=== PATIENT | male | born 1995 | race African-American/Black ===

== ENCOUNTER 2017-08-05 09:15 | Emergency (ER) | payer MEDICAID ==
[~2017-08-05] VITALS: Ht 172.7 cm; Wt 61.2 kg
--- NOTE | 2017-08-05 09:46 | RADIOLOGY REPORT PS360 ---
CHEST(2 VIEWS-NOT PORTABLE) INDICATION: Productive Cough COMPARISON: None FINDINGS: The lung hassan are well expanded and appear clear of infiltrate. The cardiomediastinal silhouette and vascularity are normal. The costophrenic angles are clear. The bony thorax is normal. IMPRESSION: Normal chest.
--- NOTE | 2017-08-05 10:02 | Urgent Treatment Center Report ---
History of Present Issue Date/Time Seen by Provider 08/05/17 0952 Visit Reason Pt arrived:Walked Presenting Problem:PT C/O PRODUCTIVE COUGH, CHEST CONGESTION, FEVER, BODYACHES, FATIGUE, AND NASAL CONGESTION X3 DAYS Location if Accident: Onset of symptoms date/time:/ or onset unknown for:MEDICAL HX UNKNOWN Have you (or family members/close friends) recently traveled outside the [place]? N If Yes, where/when: Have you had exposure to infectious disease within the past month? TB? Other? Specify: State that he has been having productive cough, States that he has been having sinus congestion, chest congestion, fever, bodyaches and over all not feeling well for 3-4 days State that symptoms have not improved and continued to get worse. ALLERGIES Coded Allergies: Penicillins (08/30/16) Home Medications Active Scripts SULFAMETHOXAZOLE W/TRIMETHOPRI (Bactrim Ds Tab) 1 TAB PO BID #14 TAB Prov: 07/26/16 History Medical History General CAD? No Angina: No NE: No Hypertension? No Hyperlipidemia? No CHF? No DVT? No PE? No COPD? No Asthma? No Anemia? No GERD? No Gastric ulcers? No GI Bleed? No Hernia? No Thyroid Problems? No Hypothyroidism? No CVA? No Seizures? No Diabetes? No Renal Insuffiency? No UTI? No Stones? Yes BPH? No GB Disease: No Nephritic Syndrome? No Asplenia? No Hepatitis? No Sickle Cell Disease? No Arthritis? No Migraines? No Cataracts? No Glaucoma? No MRSA? No HIV? No TB? No Anxiety? No Depression? No Cancer? No More? No Immunization HX DT/Tetanus 5-10 Years Ago Pneumonia Refuses Surgical Hx Previous Surgery?Y 3 METAL PLATES IN HEAD WISDOM TEETH KIDNEY STONE REMOVAL Family History Family HX Diabetes Yes CAD Yes Hypertension Yes Hyperlipidemia Yes Cancer Yes TB No Social History Smoking Hx Smoker: Current Every Day Smoker Tobacco: Yes Type Cigarettes Packs/day < 1 Pack Alcohol Alcohol: No Review of Systems All Other Systems Reviewed and Negative Constitutional chills, fever, weakness ENT nose congestion, throat pain. denies: ear pain. Respiratory cough, denies shortness of breath, denies wheezing Cardiovascular denies chest pain, denies palpitations Gastrointestinal denies abdominal pain, denies nausea, denies vomiting Physical Exam Vital Signs Vital Signs Date Time Temp Pulse Resp B/P Pulse O2 O2 Flow FiO2 Ox Delivery Rate 08/05 930 100.8 120 18 123/88 97 General Appearance Patient appears ill sitting on exam table Ear, Nose, Throat sinus pain/drainage, nasal congestion, Throat red, irritated, tenderness noted maxillary sinsuse reports greenish yellow drainage Respiratory Status Yes: trachea midline, chest symmetrical, non tender chest. No: respiratory distress. Lung Sounds bilateral: normal breath sounds. Cardiovascular regular rate/rhythm Neurologic alert, normal exam, oriented x 3 Medical Decision Making LABS/Meds/Orders Pt receiving controlled substance in ED? No Results/Orders Laboratory Tests 08/05/17 0930: Influenza Type A Ag NOT DETECTED, Influenza Type B Ag NOT DETECTED Orders Procedure Date/time Status CULTURE, SPUTUM 08/05 936 Active TXC FLU A,B 08/05 930 Complete Departure Departure Time of Disposition 958 Disposition DC Home or Self Care(routine) Clinical Impression Primary Impression: Upper respiratory infection Qualifiers: URI type: unspecified URI Qualified Code: J06.9 - Acute upper respiratory infection, unspecified Condition STABLE Patient Instructions Cough, DI for Cough -- Adult, DI for Sinusitis Additional Instructions * Monitor Temp. Tylenol and/or Ibuprofen as needed. ER if fever is no less than 101 despite alternating Tylenol and Ibuprofen * Encourage fluids, water, Gatorade, powerade, pedialyte if /toddler/or child * Warm salt water gargles for throat irritation *Warm fluids *Sore throat lozenges *Sleep elevated *humidifier or vaporizer Follow up IMMEDIATELY for new or worsening of symptoms OR no noticeable improvement over the next 48-72 hours. 911 immediately for any life threatening symptoms such as chest pain or difficulty breathing Discharge Counseling Counseled pt/family regarding diagnosis, test results, medications/RX, home care, follow up needs Prescriptions Current Visit Scripts Azithromycin (Zithromycin (Z-BECKY) 250MG Tab) 250 MG PO DAILY #6 TAB TAKE TWO (2) TABLETS ON DAY 1, THEN ONE (1) TABLET DAY #2 THRU #5 Methylprednisolone (Medrol Dose Becky) 4 MG PO UD #1 BECKY TAKE DIRECTED ON PACKAGING Fluticasone Propionate (Flonase 50 Mcg Nasal [place]) 2 SPRAY NA DAILY #1 BOT Benzonatate (Tessalon Perle) 100 MG PO TID #15 SGL at 1001
[2017-08-05 10:03] VITALS: BP 123/88
--- OUTSIDE RECORDS SUMMARY | 2017-08-12 02:29 | External Medical Summary Rpt | CCD ---
Author Author , DANA Organization DANA Address Unknown Phone [email or web address] Care Team Providers Care Kiln Maintenance Name Role Phone A Soniya ELIZABETH MD PSC, A Unavailable Unavailable Soniya ELIZABETH MD PSC VENEGAS ANA, VENEGAS Unavailable Unavailable [facility] Unavailable Unavailable PSC, [facility] ARNOLD, ARNOLD Unavailable Unavailable ARNOLD, ARNOLD Unavailable Unavailable ARNOLD LULY, ARNOLD Unavailable Unavailable LULY ARNOLD LULY, ARNOLD Unavailable Unavailable LULY BESSON ABHIJIT, BESSON Unavailable Unavailable ABHIJIT VAZQUEZ ALL, VAZQUEZ ALL Unavailable Unavailable BRENDAN EDGAR, Unavailable Unavailable BRENDAN EDGAR [facility], Unavailable Unavailable [facility], Unavailable [facility]available [facility], [facility] Unavailable Unavailable [facility], [facility] Unavailable Unavailable MARINA ELIZABETH, MARINA Unavailable Unavailable [facility]ABETH [facility] Unavailable Unavailable INC, [facility] Unavailable Unavailable HOSPITAL P, [facility] P [facility], Unavailable Unavailable [facility] Unavailable Unavailable IMAGING ASS, [facility] KILPELA JEA, KILPELA Unavailable Unavailable PUMAA ILA LAMAR DWI, ILA Unavailable Unavailable JR DWI [facility] Un[facility]available [facility], [facility] Unavailable Unavailable SADEK MOH, SADEK MOH Unavailable Unavailable SCIFRES ANG, SCIFRES Unavailable Unavailable ANG SCIFRES ANG, SCIFRES Unavailable Unavailable ZAIN ALEJO, Unavailable [facility]available [facility], Unavailable Unavailable [facility] CLARA PÉREZ Unavailable Unavailable Purpose Continuity of Care Document - 01-14-2013 through 2016 Problems Code Diagnosis DOS Provider Status J029 ACUTE 11-05-2016 ARNOLD PHARYNGITIS UNSPECIFIED J069 ACUTE UPPER 01-06-2017 ARNOLD RESPIRATORY INFECTION UNSPECIFIED R51 HEADACHE 08-30-2016 [facility] R55 SYNCOPE AND 08-30-2016 [facility]SE [facility] I249PRO FALL SAME 08-30-2016 NATTY [facility] P SUB STRIK OBJ INIT F18543 UNS PLACE 08-30-2016 NATTY UNS NON [facility] INST RES HOSPITAL P PLACE OF OCCUR EXT N200 CALCULUS OF 07-26-2016 [facility] [place] N23 UNSPECIFIED 07-26-2016 [facility] COLIC [facility] Z720 TOBACCO USE 07-26-2016 NATTY [facility] [id number] PERSONAL 07-26-2016 [facility] URINARY INC CALCULI N201 CALCULUS OF 05-06-2016 [facility] PSC N202 CALCULUS OF 05-06-2016 [facility] WITH CALCULUS OF URETER Z880 ALLERGY 05-06-2016 [facility] STATUS TO HOSPITAL PENICILLIN N029 RECUR & 05-04-2016 NATTY PERSIST [facility] P UNS MORPHOLOG CHANGES R109 UNSPECIFIED 04-27-2016 [place] [facility] E860 DEHYDRATION 04-26-2016 [facility] N12 TUBULO-INTE 04-26-2016 [facility] RST [facility] NEPHRITIS PLLC NOT SPEC ACUTE/CHRON N132 HYDRONEPHRO 04-26-2016 [place] SIS W/RENAL MEDICAL & URETRL IMAGING ASS CALCULOUS OBST N139 OBSTRUCTIVE 04-26-2016 [place] AND REFLUX [facility]ICAL UROPATHY IMAGING ASS UNSPECIFIED N179 ACUTE 04-26-2016 [facility] FAILURE [facility] UNSPECIFIED R1110 VOMITING 04-26-2016 [place] UNSPECIFIED [facility] R112 NAUSEA WITH 04-26-2016 [facility] VOMITING [facility], UNSPECIFIED PLLC [id number] LACERATION 04-25-2016 [facility] W/O FB PHYSICIANS, OTHER PART PLLC HEAD INITIAL ENC R1030 LOWER 04-11-2016 [facility]OM[facility]AL [facility] PAIN PLLC UNSPECIFIED R1031 RIGHT LOWER 04-11-2016 [place] [facility] R197 DIARRHEA 04-11-2016 [facility] [id number] CONTUSION 03-08-2016 [facility] OF RIGHT [facility], HAND PLLC INITIAL ENCOUNTER [id number] UNSPECIFIED 03-08-2016 [facility] INJURY RT MEDICAL WRIST HAND IMAGING ASS FINGERS INITIAL F02099 PERSONAL 03-08-2016 [facility] NICOTINE INC DEPENDENCE H5203 HYPERMETROP 02-06-2016 SCIFRDANIELLE ANG IA BILATERAL J0190 ACUTE 01-19-2016 ARNOLD LULY SINUSITIS UNSPECIFIED J209 ACUTE 01-19-2016 ARNOLD LULY BRONCHITIS UNSPECIFIED S34838 PAIN IN 01-19-2016 [facility] Z1021BS UNSPECIFIED 01-19-2016 ARNOLD LULY INJURY UNS WRIST HAND FINGERS INIT 4660 ACUTE 07-18-2015 ARNOLD LULY BRONCHITIS 98515 UNSPECIFIED 03-19-2015 A Soniya ELIZABETH VIRAL PSC INFECTION IN CCE & UNS SITE 4619 ACUTE 02-13-2015 ARNOLD LULY SINUSITIS, UNSPECIFIED 8910 OPEN WOUND 02-11-2015 A Soniya ELIZABETH KNEE PSC LEG&ANK WITHOUT MENTION COMP 11246 NONSPEC 01-31-2015 A Soniya GRUBBS MD PSC TUBERCULIN SKIN TEST W/O ACTIVE TB V1549 OTH PERS HX 01-30-2015 [facility] TRAUMA PRS HAZS HLTH 462 ACUTE 01-29-2015 A Soniya ELIZABETH PHARYNGITIS PSC 7862 COUGH 01-29-2015 A Soniya ELIZABETH MD PSC 9190 ABRASION/FR 01-29-2015 NATTY ICION BURN [facility] OTH MX&UNS HOSPITAL P SITE W/O INF E8498 OTHER 01-29-2015 NATTY [facility] PL[facility] OF HOSPITAL P OCCURRENCE E8849 OTHER 01-29-2015 NATTY ACCIDENTAL [facility] FALL FROM HOSPITAL P ONE LEVEL TO ANOTHER V851 BODY MASS 01-29-2015 A Soniya ELIZABETH INDEX PSC BETWEEN 19-24 ADULT 4659 ACUTE URIS 01-06-2015 A Soniya RAMIRES PSC UNSPECIFIED SITE 0340 STREPTOCOCC 10-08-2014 [facility] 7841 THROAT PAIN 08-01-2014 A Soniya ELIZABETH MD PSC V202 ROUTINE 05-17-2014 FIELD AMB OR CHILD HEALTH CHECK Allergies, Adverse Reactions, Alerts Type Allergy to substance Adverse Reaction to Substance Substance Reaction Severity NO KNOWN ALLERGIES Unknown Unknown Medications Na ND Rx Da Fi Fi Am Da Di Ph RX Ph St me C No te ll ll ou ys ag ar # ys at rm s nt no ma ic us Or Da si cy ia de te s n re d BR 60 08 09 60 10 00 WA Ac OM 43 -2 -2 0. 00 L- ti PH 20 5- 9- 00 07 MA ve EN 27 20 20 0 50 RT IR 51 17 17 59 -P 6 52 PH SE AR UD MA OE CY PH ED #5 -D 91 M SY R WV 57 07 08 30 30 00 WA Ac RT 23 -1 -1 .0 00 L- ti AZ 70 2- 1- 00 07 MA ve AP 00 20 20 49 RT IN 83 17 17 84 E 0 97 PH 15 AR MA MG CY TA #5 BL 91 ET VE 00 01 02 18 18 00 EA Ac NT 17 -0 -[address] ti OL 30 6- 0- 00 00 SI ve IN 68 20 20 47 DE 22 17 17 15 HF 0 54 PH A AR 90 MA CY MC G OF IN CY BAUTISTA NT LE HI R AN A IN C LI 50 01 02 10 2 00 EA Ac DO 38 -0 -[address] ti CA 30 6- 0- 00 00 SI ve IN 77 20 20 0 47 DE E 50 17 17 15 2% 4 53 PH AR MA SC CY OU S OF SO CY LN NT HI AN A IN C AL 00 01 02 18 9 00 EA Ac OM 60 -0 -[address] ti ET 31 6- 0- 00 00 SI ve BAUTISTA 58 20 20 0 47 DE ZI 65 17 17 15 NE 8 51 PH -D AR M MA SY CY RU P OF CY NT HI AN A IN C CE 16 01 02 30 30 00 EA Ac TI 71 -0 -[address] ti RI 40 6- 0- 00 00 SI ve ZI 27 20 20 47 DE NE 10 17 17 15 3 50 PH HC AR L MA 10 CY MG OF CY TA NT BL HI ET AN A IN C DO 00 01 02 20 10 00 EA Ac XY 14 -0 -[address] ti CY 33 6- 0- 00 00 SI ve CL 14 20 20 42 DE IN 25 17 17 76 E 0 42 PH HY AR CL MA AT CY E 10 OF 0 CY MG NT HI CA AN P A IN C Vital Signs 01-14-2013 13:42 Name Value Interpretat Reference Comment ion Range Body 98.3 [degF] Temperature BP 84 mm[Hg] Diastolic BP Systolic 140 mm[Hg] Heart 77 /min Rate/Pulse O2% 99 % Respiratory 18 /min Rate 01-14-2013 13:31 Name Value Interpretat Reference Comment ion Range Body 98.3 [degF] Temperature BP 84 mm[Hg] Diastolic BP Systolic 140 mm[Hg] Heart 77 /min Rate/Pulse O2% 99 % Respiratory 18 /min Rate Results Labs Lab Lab Date Result Refere Interp Status Commen Order Detail nces retati t Range on Influenza virus A+B Ag [Presence] in Unspecified specimen (08-05-2017 09:30) Influen NOT NOT complet za 017 DETECTE DETECTD ed virus A 09:30 D Ag [Presen ce] in Unspeci fied specime n INFLUEN NOT NOT complet ZA B 017 DETECTE DETECTD ed ANTIGEN 09:30 D Procedures Procedure DOS Code Location Performer Comment ECG 95755 NATTY THORPE JR ROUTINE 6 [facility] W/LEAST P 12 LDS [place] [address] [place] BRENDAN HEAD/BRAI 6 MEDICAL EDGAR N W/O IMAGING CONTRAST ASS MATERIAL THERAPEUT 60443 NATTY LUZ IC 6 [facility] INJECTION [place] [address] [place] VAZQUEZ ALL ABDOMEN & 6 MEDICAL PELVIS IMAGING [place] [address] NATTY LUZ INFUSION 6 [facility] THERAPY/P INC INC ROPHYLAXI S /DX 1ST TO 1 HR URNLS DIP 97044 NATTY LUZ 6 [facility] STICK/TAB INC INC LET REAGENT AUTO MICROSCOP Y BLOOD 87377 NATTY LUZ COUNT 6 [facility] COMPLETE INC INC AUTO&AUTO DIFRNTL WBC COMPREHEN 93777 NATTY LUZ SIVE 6 [facility] METABOLIC INC INC PANEL CYSTO 79997 [facility] W/[address] URETERAL STENT ANES 27721 ANESTHESI MOISES HEA TRURL 6 A FRAGMNTJ ASSOCIATE MANJ&/RMV S PSC L URETERAL CALCULUS INJECTION J[address] ONDANSETR ON HCL PER 1 MG INJECTION J[address] ACETAMINO PHEN 10 MG CYSTO 88088 [facility] W/URETERO [address] [place] [address] SCOPY W/RMVL/MA [place] STONES INJECTION J[address] DEXAMETHO SONE SODIUM PHOSPHATE 1 MG INJECTION J1956 [address] LEVOFLOXA ADY 250 MG INJECTION J2001 [address] LIDOCAINE HCL INTRAVENO US INFUS 10 MG STENT C2617 [facility] NON-COR [address] [place] [address] TEMPORARY WITHOUT DELIVERY SYSTEM CALCULUS 84846 [facility] INFRARED [address] [place] [address] SPECTROSC OPY INJECTION J[address]85 [address] KETOROLAC TROMETHAM INE PER 15 MG INJECTION J2704 [facility] PROPOFOL [address] [place] [address] 10 MG INJECTION J3010 [facility] FENTANYL [address] [place] [address] CITRATE 0.1 MG UNCLASSIF J3490 NATTY LUZ IED DRUGS 6 [facility] INC INC OBSERVATI 72810 [facility]ARE 6 [facility] DISCHAR[facility] INTERNAL MED MANAGEMEN T RADEX 47907 [facility] BRENDAN ABDOMEN 1 6 MEDICAL EDGAR IMAGING [facility] G0378 NATTY LUZ OBSERVATI 6 [facility] ON INC INC SERVICE PER HOUR BLOOD 80843 NATTY LUZ COUNT 6 [facility] COMPLETE INC INC AUTO&AUTO DIFRNTL WBC COLLECTIO 98323 NATTY LUZ N VENOUS 6 [facility] BLOOD INC INC VENIPUNCT URE COMPREHEN 20139 NATTY LUZ SIVE 6 [facility] METABOLIC INC INC PANEL COMPREHEN 84219 NATTY LUZ SIVE 6 [facility] [place] [address] NATTY LUZ AMYLASE 6 [facility] H[facility] INC INC BLOOD 19607 NATTY LUZ COUNT 6 [facility] COMPLETE INC INC AUTO&AUTO DIFRNTL WBC INITIAL 25862 [facility] OBSERVATI 6 [facility] INTERNAL CARE/DAY MED 30 MINUTES TOBACCO 27184 NATTY LUZ USE 6 [facility] CESSATION INC INC INTERMEDI ATE 3-10 MINUTES HOSPITAL G0378 NATTY LUZ OBSERVATI 6 [facility] ON INC INC SERVICE PER HOUR URNLS DIP 06874 NATTY LUZ 6 [facility] STICK/TAB INC INC LET REAGENT AUTO MICROSCOP Y THERAPEUT 54504 NATTY LUZ IC 6 [facility] INJECTION INC [place] [address] [facility] ABDOMEN & 6 MEDICAL EDAGR PELVIS IMAGING W/CONTRAS ASS T MATERIAL RADEX 47300 [facility] VAZQUEZ ALL ABDOMEN 1 6 MEDICAL IMAGING [place] [address] NATTY LUZ LIPASE 6 [facility] INC INC CULTURE 71279 NATTY LUZ BACTERIAL 6 [facility] INC [place] [address] NATTY LUZ INFUSION 6 [facility] THER INC INC PROPH ADDL SEQUENT[place] L TO 1 [place] [address] NATTY NATTY INFUSION 6 [facility] THERAPY INC INC PROPHYLAX IS/DX EA HOUR UNCLASSIF J3490 NATTY LUZ IED DRUGS 6 [facility] INC INC SIMPLE 87531 KM FAUSTIN REPAIR 6 PHYSICIAN U MELO F/E/E/N/L S, PLLC /M 2.[place]CM-[place] [address] NATTY NATTY ABDOMEN & 6 [facility] PELVIS INC INC W/CONTRAS T MATERIAL URNLS DIP 81043 NATTY LUZ 6 [facility] STICK/TAB INC INC LET REAGENT AUTO MICROSCOP Y COMPREHEN 04316 NATTY LUZ SIVE 6 [facility] METABOLIC INC INC PANEL LOCM Q9967 NATTY LUZ 300-399 6 [facility] MG/ML INC INC IODINE CONCENTRA TION PER ML BLOOD 25176 NATTY LUZ COUNT 6 [facility] COMPLETE INC INC AUTO&AUTO DIFRNTL WBC UNCLASSIF J3490 NATTY LUZ IED DRUGS 6 [facility] INC INC UNCLASSIF J3490 NATTY LUZ IED DRUGS 6 [facility] INC INC THERAPEUT 11806 NATTY LUZ IC 6 [facility] PROPHYLAC INC INC TIC/DX INJECTION SUBQ/IM RADEX 75233 [facility] ALL HAND 2 6 MEDICAL VIEWS IMAGING ASS RADEX 59899 NATTY LUZ HAND 6 [facility] MINIMUM 3 INC INC VIEWS OPHTH 89474 SCIFRES SCIFRES MEDICAL 6 ANG ANG XM&EVAL COMPRHNSV ESTAB PT 1/> FRAMES V2020 SCIFRES SCIFRES PURCHASES 6 ANG ANG SCRATCH V2760 SCIFRES SCIFRES RESISTANT 6 ANG ANG COATING PER LENS LENS V2784 SCIFRES SCIFRES POLYCARBO 6 ANG ANG PILAR OR EQUAL ANY INDEX PER LENS SPHERE V2100 SCIFRES SCIFRES SINGLE 6 ANG ANG VISION PLANO +/- 4.00 PER LENS FITTING 56728 SCIFRES SCIFRES SPECTACLE 6 ANG ANG S XCPT APHAKIA MONOFOCAL RADEX 54838 [place] BR[facility]AN HAND 6 MEDICAL EDGAR MINIMUM 3 IMAGING VIEWS ASS SMPL 38295 NATTY GRAY REPAIR 5 [facility] K/AX/CONNIE P T/TRUNK 2.6-7.5CM BLOOD 53202 A C CLARA A COUNT 5 CLARA RICHARDSON COMPLETE PSC AUTO&AUTO DIFRNTL WBC IAADIADOO 87146 A Soniya Rodrigez 5 CLARA RICHARDSON STREPTOCO PSC CCUS GROUP A IAADIADOO 52643 A Soniya DE PAZ 5 CLARA RICHARDSON STREPTOCO PSC CCUS GROUP A INJECTION J1040 [facility] MARINA 4 PHYSICIAN ELIZABETH METHYLPRE S GROUP DNISOLONE ACETATE 80 MG THERAPEUT 73185 [facility] MARINA IC 4 PHYSICIAN ELIZABETH PROPHYLAC S GROUP TIC/DX INJECTION SUBQ/IM IAADIADOO 90786 Rain Rodrigez 4 CLARA RICHARDSON STREPTOCO PSC CCUS GROUP A IAADIADOO 22178 Rain NIEVES 4 CLARA RICHARDSON JERain STREPTOCO PSC CCUS GROUP A Encounters Encounter Start End Date Code Location Performer Type Date OFFICE 52099 [facility] T VISIT 15 MINUTES EMERGENCY 70177 KM FOFANA [facility] DEPT 6 6 PHYSICIAN VISIT S, PLLC HIGH SEVERITY& THREAT FUNCJ EMERGENCY 42825 NATTY 6 6 [facility] DEPARTMEN INC T VISIT MODERATE SEVERITY HOSPITAL NATTY - 6 6 [facility] OUTPATIEN INC T EMERGENCY 56283 KM FOFANA [facility] 6 6 [facility] H[facility]/URGE NT SEVERITY [facility] 6 6 HOSPITAL OUTPATIEN T OFFICE 66386 [facility] 6 6 [facility] T VISIT HOSPITAL 10 P MINUTES EMERGENCY 91529 KM FAUSTIN DEPT 6 6 PHYSICIAN U MELO [facility] SEVER[facility]& THREAT FUNC HOSPITAL NATTY - 6 6 [facility] OUTPATIEN INC T EMERGENCY 28150 NATTY 6 6 [facility] DEPARTMEN INC T VISIT HIGH/URGE NT SEVERITY EMERGENCY 98966 K[facility] FAUSTIN 6 6 PHYSICIAN U MELO [facility] T VISIT MODERATE SEVERITY EMERGENCY 13186 NATTY 6 6 [facility] DEPARTMEN INC T VISIT LOW/MODER SEVERITY EMERGENCY 92464 KM FAUSTIN DEPT 6 6 PHYSICIAN U MELO VISIT S, PLLC HIGH SEVERITY& THREAT [facility] NATTY - 6 6 [facility] OUTPATIEN INC T EMERGENCY 75623 NATTY 6 6 [facility] DEPARTMEN INC T VISIT LOW/MODER SEVERITY EMERGENCY 89170 KM FOFANA [facility] 6 6 PHYSICIAN [facility]PART[facility] T VISIT MODERATE SEVERITY HOSPITAL NATTY - 6 6 [facility] H[facility] OUTPATIEN INC T OFFICE 85736 JOSEPH RUIZ OUTPATIEN 6 6 LULY LULY T VISIT 15 MINUTES OFFICE 39159 JOSEPH RUIZ OUTPATIEN 6 6 LULY LULY T VISIT 15 MINUTES OFFICE 21291 JOSEPH RUIZ OUTPATIEN 5 5 LULY LULY T VISIT 15 MINUTES OFFICE 07945 JOSEPH RUIZ OUTPATIEN 5 5 LULY LULY T VISIT 15 MINUTES OFFICE 52996 A C KILPELA OUTPATIEN 5 5 CLARA RICHARDSON JEA T VISIT PSC 15 MINUTES OFFICE 33535 JOSEPH RUIZ OUTPATIEN 5 5 LULY LULY T VISIT 15 MINUTES OFFICE 27487 A C KILPELA OUTPATIEN 5 5 CLARA MCCORMACK T VISIT PSC 15 MINUTES OFFICE 91764 A C ELIZABETH A OUTPATIEN 5 5 CLARA RICHARDSON T VISIT 5 PSC MINUTES OFFICE 94480 A C FIELD AMB OUTPATIEN 5 5 CLARA RICHARDSON T VISIT PSC 15 MINUTES OFFICE 71367 A C ELIZABETH A OUTPATIEN 5 5 CLARA RICHARDSON T VISIT PSC 15 MINUTES EMERGENCY 92653 NATTY GRAY 5 5 [facility] T VISIT P LIMITED/M INOR PROB OFFICE 08105 A C FIELD AMB OUTPATIEN 5 5 CLARA RICHARDSON T VISIT PSC 15 MINUTES OFFICE 10071 [facility] MARINA OUTPATIEN 4 4 PHYSICIAN ELIZABETH T VISIT S GROUP 15 MINUTES OFFICE 26300 A C ELIZABETH A OUTPATIEN 4 4 CLARA RICHARDSON T VISIT PSC 15 MINUTES OFFICE 20130 A C KILPELA OUTPATIEN 4 4 CLARA MCCORMACK T VISIT PSC 15 MINUTES PERIODIC 32238 FIELD AMB FIELD AMB PREVENTIV 4 4 E MED EST PATIENT 10-16YRS Emergency YARELY Kauffman (ER) 3 13:57 3 14:[address] [facility] Philippe Castillo
--- OUTSIDE RECORDS SUMMARY | 2017-08-12 02:29 | External Medical Summary Rpt | CCD ---
Author Author , DANA Organization DANA Address Unknown Phone [email or web address] Care Team Providers Care Family Nurse Practitioner Name Role Phone A Soniya ELIZABETH MD [...] Unavailable MARINA ELIZABETH, MARINA Unavailable Unavailable [facility]ABETH [facility], [facility] Unavailable Unavailable [facility]PITAL P, [facility], Unavailable Unavailable [facility] Unavailable Unavailable IMAGING [facility], [facility] KILPELA JEA, KILPELA Unavailable Unavailable PUMAA ILA LAMAR DWI, ILA Unavailable Unavailable JR DWI [facility], [facility] Unavailable Unavailable SADEK MOH, SADEK MOH Unavailable Unavailable SCIFRES ANG, SCIFRES Unavailable Unavailable ANG SCIFRES ANG, SCIFRES Unavailable Unavailable ZAIN ALEJO, Unavailable [facility]available [facility], Unavailable Unavailable [facility] CLARA PÉREZ Unavailable Unavailable Purpose Continuity of Care Document - 01-14-2013 through 2016 Problems Code Diagnosis DOS Provider Status J029 ACUTE 11-05-2016 [facility] PHARYNGITIS UNSPECIFIED J069 ACUTE UPPER 01-06-2017 [facility] RESPIRATORY INFECTION UNSPECIFIED R51 HEADACHE 08-30-2016 [facility] R55 SYNCOPE AND 08-30-2016 [facility]SE [facility] [id number] FALL SAME 08-30-2016 [facility] P SUB STRIK OBJ INIT [id number] UNS PLACE 08-30-2016 [facility] UNS NON [facility] INST RES HOSPITAL P PLACE OF OCCUR EXT N200 CALCULUS OF 07-26-2016 [facility] N23 UNSPECIFIED 07-26-2016 [facility] COLIC [facility] Z720 TOBACCO USE 07-26-2016 [facility] [id number] PERSONAL 07-26-2016 [facility] URINARY INC CALCULI N201 CALCULUS OF 05-06-2016 [facility] PSC N202 CALCULUS OF 05-06-2016 [facility] WITH CALCULUS OF URETER Z880 ALLERGY 05-06-2016 [facility] STATUS TO [facility]OSP[facility] N029 RECUR & 05-04-2016 [facility] P UNS MORPHOLOG CHANGES R109 UNSPECIFIED 04-27-2016 [facility] E860 DEHYDRATION 04-26-2016 [facility] N12 TUBULO-INTE 04-26-2016 [facility] RST [facility] NEPHRITIS PLLC NOT SPEC ACUTE/CHRON N132 HYDRONEPHRO 04-26-2016 [place] SIS W/RENAL MEDICAL & URETRL IMAGING ASS CALCULOUS OBST N139 OBSTRUCTIVE 04-26-2016 [place] AND REFLUX [facility]ICAL UROPATHY IMAGING ASS UNSPECIFIED N179 ACUTE 04-26-2016 [facility] FAILURE [facility] UNSPECIFIED R1110 VOMITING 04-26-2016 [place] [facility]NSPECIFIED [facility] R112 NAUSEA WITH 04-26-2016 [facility] VOMITING [facility], UNSPECIFIED PLLC [id number] LACERATION 04-25-2016 [facility] W/O FB PHYSICIANS, OTHER PART PLLC HEAD INITIAL ENC R1030 LOWER 04-11-2016 [facility]AL [facility] PAIN PLLC UNSPECIFIED R1031 RIGHT LOWER 04-11-2016 [place] [facility] R197 DIARRHEA 04-11-2016 [facility] UNSPECIFIED MEDICAL IMAGING ASS [id number] CONTUSION 03-08-2016 [facility] OF RIGHT [facility]YSIC[facility], HAND PLLC INITIAL ENCOUNTER H4556EA UNSPECIFIED 03-08-2016 [facility] WRIST HAND IM[facility]ING [facility] FINGERS INITIAL Y43362 PERSONAL 03-08-2016 [facility] NICOTINE INC DEPENDENCE H5203 HYPERMETROP 02-06-2016 SCIFRDANIELLE ANG IA BILATERAL J0190 ACUTE 01-19-2016 [facility] LULY SINUSITIS UNSPECIFIED J209 ACUTE 01-19-2016 [facility] LULY BRONCHITIS UNSPECIFIED J83780 PAIN IN 01-19-2016 [facility] [id number] UNSPECIFIED 01-19-2016 [facility] LULY INJURY UNS WRIST HAND FINGERS INIT 4660 ACUTE 07-18-2015 [facility] LULY BRONCHITIS 73176 UNSPECIFIED 03-19-2015 A Soniya ELIZABETH VIRAL PSC INFECTION IN CCE & UNS SITE 4619 ACUTE 02-13-2015 [facility] LULY SINUSITIS, UNSPECIFIED 8910 OPEN WOUND 02-11-2015 A Soniya ELIZABETH KNEE PSC LEG&ANK WITHOUT MENTION COMP 48068 NONSPEC 01-31-2015 A Soniya GRUBBS MD PSC TUBERCULIN SKIN TEST W/O ACTIVE TB V1549 OTH PERS HX 01-30-2015 [facility] PSYCHOLOGIC AL TRAUMA PRS HAZS HLTH 462 ACUTE 01-29-2015 A Soniya ELIZABETH PHARYNGITIS PSC 7862 COUGH 01-29-2015 A Soniya ELIZABETH MD PSC 9190 ABRASION/FR 01-29-2015 NATTY ICION BURN [facility] OTH MX&UNS HOSPITAL P SITE W/O INF E8498 OTHER 01-29-[address] [facility] PL[facility] OF HOSPITAL P OCCURRENCE E8849 OTHER 01-29-2015 NATTY ACCIDENTAL [facility] FALL FROM HOSPITAL P ONE LEVEL TO ANOTHER V851 BODY MASS 01-29-2015 A Soniya ELIZABETH INDEX PSC BETWEEN 19-24 ADULT 4659 ACUTE URIS 01-06-2015 A Soniya RAMIRES PSC UNSPECIFIED SITE 0340 STREPTOCOCC 10-08-2014 [facility] 7841 [...] ED #5 -D 91 M SY R SC 57 07 08 30 30 00 WA [...] LN NT HI AN A IN C IL 00 01 02 18 9 00 EA [...] Procedure DOS Code Location Performer Comment ECG 43291 NATTY THORPE JR ROUTINE 6 [facility] W/LEAST P 12 LDS I&[place] [address] [place] [facility] HEAD/BRAI 6 MEDICAL EDGAR N W/O IMAGING CONTRAST ASS MATERIAL THERAPEUT 58161 NATTY LUZ IC 6 [facility] INJECTION [place] [address] [place] VAZQUEZ ALL ABDOMEN & 6 MEDICAL PELVIS IMAGING [place] [address] NATTY LUZ INFUSION 6 [facility] THERAPY/P INC INC ROPHYLAXI S /DX 1ST TO 1 HR URNLS DIP 16627 NATTY LUZ 6 [facility]OS[facility] STICK/TAB INC INC LET REAGENT AUTO MICROSCOP Y BLOOD 60597 NATTY LUZ COUNT 6 [facility]OSP COMPLETE INC INC AUTO&AUTO DIFRNTL WBC COMPREHEN 28764 NATTY LUZ SIVE 6 [facility] METABOLIC INC INC PANEL CYSTO 80817 [facility] W/[address] URETERAL STENT ANES 75143 [facility]EST[facility]ESI [facility] TRURL 6 A FRAGMNTJ ASSOCIATE MANJ&/RMV S PSC L URETERAL CALCULUS INJECTION J[address] ONDANSETR ON HCL PER 1 MG INJECTION J[address] ACETAMINO PHEN 10 MG CYSTO 70587 [facility] W/URETERO [address] [place] [address] SCOPY W/RMVL/MA [place] STONES INJECTION J1100 [address] DEXAMETHO SONE SODIUM PHOSPHATE 1 MG INJECTION J1956 [address] LEVOFLOXA ADY 250 MG INJECTION J2001 [address] LIDOCAINE HCL INTRAVENO US INFUS 10 MG STENT C2617 [facility] NON-COR [address] [place] [address] TEMPORARY WITHOUT DELIVERY SYSTEM CALCULUS 07825 [facility] INFRARED [address] [place] [address] SPECTROSC OPY INJECTION J1885 [address] KETOROLAC TROMETHAM INE PER 15 MG INJECTION J2704 [facility] PROPOFOL [address] [place] [address] 10 MG INJECTION J3010 [facility] FENTANYL [address] [place] [address] CITRATE 0.1 MG UNCLASSIF J3490 NATTY LUZ IED DRUGS 6 [facility] INC INC OBSERVATI 99379 [place] [facility] 6 [facility] DISCHARGE INTERNAL MED MANAGEMEN T RADEX 22225 [facility] ABDOMEN 1 6 [facility] G0378 NATTY LUZ OBSERVATI 6 [facility] ON INC INC SERVICE PER HOUR BLOOD 82897 NATTY LUZ COUNT 6 [facility] COMPLETE INC INC AUTO&AUTO DIFRNTL WBC COLLECTIO 35902 NATTY LUZ N VENOUS 6 [facility] BLOOD INC INC VENIPUNCT URE COMPREHEN 78996 NATTY LUZ SIVE 6 [facility] METABOLIC INC INC PANEL COMPREHEN 88989 NATTY LUZ SIVE 6 [facility] [place] [address] NATTY LUZ AMYLASE 6 [facility] INC INC BLOOD 75577 NATTY LUZ COUNT 6 [facility] COMPLETE INC INC AUTO&AUTO DIFRNTL WBC INITIAL 78661 [place] [facility] OBSERVATI 6 [facility] INTERNAL CARE/DAY MED 30 MINUTES TOBACCO 88590 NATTY LUZ USE 6 [facility]OSP CESSATION INC INC INTERMEDI ATE 3-10 MINUTES HOSPITAL G0378 NATTY LUZ OBSERVATI 6 [facility] ON INC INC SERVICE PER HOUR URNLS DIP 31336 NATTY LUZ 6 [facility] STICK/TAB INC INC LET REAGENT AUTO MICROSCOP Y THERAPEUT 63901 NATTY LUZ IC 6 [facility] INJECTION INC [place] [address] [facility]AN ABDOMEN & 6 MEDICAL EDGAR PELVIS IMAGING W/CONTRAS ASS T MATERIAL RADEX 22103 [facility] VA[facility] ALL ABDOMEN 1 6 MEDICAL IMAGING [place] [address] NATTY LUZ LIPASE 6 [facility] INC INC CULTURE 77772 NATTY LUZ BACTERIAL 6 [facility] INC [place] [address] NATTY LUZ INFUSION 6 [facility] THER INC INC PROPH ADDL SEQUENT[place] L [place] 1 [place] [address] NATTY NATTY INFUSION 6 [facility] THERAPY INC INC PROPHYLAX IS/DX EA HOUR UNCLASSIF J3490 NATTY LUZ IED DRUGS 6 [facility] INC INC SIMPLE 30638 KM FAUSTIN REPAIR 6 PHYSICIAN U MELO F/E/E/N/L S, PLLC /M 2.[place]CM-[place] [address] NATTY NATTY ABDOMEN & 6 [facility] PELVIS INC INC W/CONTRAS T MATERIAL URNLS DIP 94783 NATTY LUZ 6 [facility] STICK/TAB INC INC LET REAGENT AUTO MICROSCOP Y COMPREHEN 79135 NATTY LUZ SIVE 6 [facility] METABOLIC INC INC PANEL LOCM Q9967 NATTY LUZ [phone] 6 [facility] MG/ML INC INC IODINE CONCENTRA TION PER ML BLOOD 57055 NATTY LUZ COUNT 6 [facility] COMPLETE INC INC AUTO&AUTO DIFRNTL WBC UNCLASSIF J3490 NATTY LUZ IED DRUGS 6 [facility] INC INC UNCLASSIF J3490 NATTY LUZ IED DRUGS 6 [facility] INC INC THERAPEUT 88794 NATTY LUZ IC 6 [facility] PROPHYLAC INC INC TIC/DX INJECTION SUBQ/IM RADEX 49061 [facility] ALL HAND 2 6 MEDICAL VIEWS IMAGING ASS RADEX 16150 NATTY LUZ HAND 6 [facility] MINIMUM 3 INC INC VIEWS OPHTH 04556 SCIFRES SCIFRES MEDICAL 6 ANG ANG XM&EVAL COMPRHNSV ESTAB PT 1/> FRAMES V2020 SCIFRES SCIFRES PURCHASES 6 ANG ANG SCRATCH V2760 SCIFRES SCIFRES RESISTANT 6 ANG ANG COATING PER LENS LENS V2784 SCIFRES SCIFRES POLYCARBO 6 ANG ANG PILAR OR EQUAL ANY INDEX PER LENS SPHERE V2100 SCIFRES SCIFRES SINGLE 6 ANG ANG VISION PLANO +/- 4.00 PER LENS FITTING 43621 SCIFRES SCIFRES SPECTACLE 6 ANG ANG S XCPT APHAKIA MONOFOCAL RADEX 51358 [place] HAND 6 MEDICAL EDGAR MINIMUM 3 IMAGING VIEWS ASS SMPL 16503 NATTY GRAY REPAIR 5 [facility] K/AX/CONNIE P T/TRUNK 2.6-7.5CM BLOOD 29746 A C CLARA A COUNT 5 CLARA RICHARDSON COMPLETE PSC AUTO&AUTO DIFRNTL WBC IAADIADOO 38280 A Soniya Rodrigez 5 CLARA RICHARDSON STREPTOCO PSC CCUS GROUP A IAADIADOO 33384 A Soniya DE PAZ 5 CLARA RICHARDSON STREPTOCO PSC CCUS GROUP A INJECTION J1040 [facility] MARINA 4 PHYSICIAN ELIZABETH METHYLPRE S GROUP DNISOLONE ACETATE 80 MG THERAPEUT 68123 [facility] MARINA IC 4 PHYSICIAN ELIZABETH PROPHYLAC S GROUP TIC/DX INJECTION SUBQ/IM IAADIADOO 16647 Rain Rodrigez 4 CLARA RICHARSDON STREPTOCO PSC CCUS GROUP A IAADIADOO 64556 Rain NIEVES 4 CLARA RICHARDSON JERain STREPTOCO PSC CCUS GROUP A Encounters Encounter Start End Date Code Location Performer Type Date OFFICE 07995 [facility] T VISIT 15 MINUTES EMERGENCY 91375 KM FOFANA [facility] DEPT 6 6 PHYSICIAN VISIT S, PLLC HIGH SEVERITY& THREAT FUNCJ EMERGENCY 87924 NATTY 6 6 [facility] DEPARTMEN INC T VISIT MODERATE SEVERITY HOSPITAL NATTY - 6 6 [facility] OUTPATIEN INC T EMERGENCY 33924 KM FOFANA [facility] 6 6 PHYS[facility] HIGH/URGE NT SEVERITY HOSPITAL [facility] 6 6 HOSPITAL OUTPATIEN T OFFICE 60057 [facility] 6 6 [facility] T VISIT HOSPITAL 10 P MINUTES EMERGENCY 31192 KM FAUSTIN DEPT 6 6 PHYSICIAN U MELO [facility]IT S, [facility] H[facility] SE[facility]& THREAT FUNC HOSPITAL NATTY - 6 6 [facility] OUTPATIEN INC T EMERGENCY 24516 NATTY 6 6 [facility] DEPARTMEN INC T VISIT HIGH/URGE NT SEVERITY EMERGENCY 15310 KM FAUSTIN 6 6 PHYSICIAN U MELO DEPARTMEN S, [facility] T VISIT MODERATE SEVERITY EMERGENCY 06445 NATTY 6 6 [facility] DEPARTMEN INC T VISIT LOW/MODER SEVERITY EMERGENCY 26292 KM FAUSTIN DEPT 6 6 PHYSICIAN U MELO VISIT S, PLLC HIGH SEVERITY& THREAT [facility] NATTY - 6 6 [facility] OUTPATIEN INC T EMERGENCY 80371 NATTY 6 6 [facility] DEPARTMEN INC T VISIT LOW/MODER SEVERITY EMERGENCY 51640 KM FOFANA [facility] 6 6 PHYSICIAN DEPARTMEN S, [facility] T VISIT MODERATE SEVERITY HOSPITAL NATTY - 6 6 MEM H[facility] OUTPATIEN INC T OFFICE 58688 JOSEPH RUIZ OUTPATIEN 6 6 LULY LULY T VISIT 15 MINUTES OFFICE 15884 JOSEPH RUIZ OUTPATIEN 6 6 LULY LULY T VISIT 15 MINUTES OFFICE 76168 JOSEPH RUIZ OUTPATIEN 5 5 LULY LULY T VISIT 15 MINUTES OFFICE 68976 JOSEPH RUIZ OUTPATIEN 5 5 LULY LULY T VISIT 15 MINUTES OFFICE 43593 A C KILPELA OUTPATIEN 5 5 CLARA RICHARDSON JEA T VISIT PSC 15 MINUTES OFFICE 33761 JOSEPH RUIZ OUTPATIEN 5 5 LULY LULY T VISIT 15 MINUTES OFFICE 46491 A C KILPELA OUTPATIEN 5 5 CLARA MCCORMACK T VISIT PSC 15 MINUTES OFFICE 77839 A C ELIZABETH A OUTPATIEN 5 5 CLARA RICHARDSON T VISIT 5 PSC MINUTES OFFICE 09400 A C FIELD AMB OUTPATIEN 5 5 CLARA RICHARDSON T VISIT PSC 15 MINUTES OFFICE 64981 A C ELIZABETH A OUTPATIEN 5 5 CLARA RICHARDSON T VISIT PSC 15 MINUTES EMERGENCY 82404 NATTY GRAY 5 5 [facility] T VISIT P LIMITED/M INOR PROB OFFICE 25866 A C FIELD AMB OUTPATIEN 5 5 CLARA RICHARDSON T VISIT PSC 15 MINUTES OFFICE 71319 [facility] OUTPATIEN 4 4 PHYSICIAN ELIZABETH T VISIT S GROUP 15 MINUTES OFFICE 79877 A C ELIZABETH A OUTPATIEN 4 4 CLARA RICHARDSON T VISIT PSC 15 MINUTES OFFICE 14948 A C KILPELA OUTPATIEN 4 4 CLARA MCCORMACK T VISIT PSC 15 MINUTES PERIODIC 58988 FIELD AMB FIELD AMB PREVENTIV 4 4 E MED EST PATIENT [id number] Emergency YARELY Kauffman (ER) 3 13:57 3 14:21 [facility] Philippe Castillo
--- OUTSIDE RECORDS SUMMARY | 2017-08-12 02:31 | External Medical Summary Rpt | CCD ---
Author Author , DANA Organization DANA Address Unknown Phone [email or web address] Immunization Name Date Rout CVX Reac Dose Comm Prov Is Faci e tion ent ider Refu lity Give sed n Tdap 06-2 115 999 Hist H149 No H149 , 7-20 oric Adso 08 al rbed Info rmat ion - Sour ce Unsp ecif ied Vari 01-2 21 999 Hist H149 No H149 cell 4-20 oric a 01 al Info rmat ion - Sour ce Unsp ecif ied [place] 01-2 10 999 Hist H149 No H149 o-IP 4-20 oric V 01 al Info rmat ion - Sour ce Unsp ecif ied DTaP 01-2 107 999 Hist H149 No H149 , UF 4-20 oric 01 al Info rmat ion - Sour ce Unsp ecif ied MMR 01-2 3 999 Hist H149 No H149 4-20 oric 01 al Info rmat ion - Sour ce Unsp ecif ied Hep 02-1 8 999 Hist H137 No H137 B, 7-19 oric ped/ 99 al adol Info rmat ion - Sour ce Unsp ecif ied [place] 06-0 2 999 Hist H149 No H149 o-OP 5-19 oric V 98 al Info rmat ion - Sour ce Unsp ecif ied Hib, 06-0 17 999 Hist H149 No H149 UF 5-19 oric 98 al Info rmat ion - Sour ce Unsp ecif ied MMR 06-0 3 999 Hist H149 No H149 5-19 oric 98 al Info rmat ion - Sour ce Unsp ecif ied DTaP 06-0 107 999 Hist H149 No H149 , UF 5-19 oric 98 al Info rmat ion - Sour ce Unsp ecif ied Hep 03-1 8 999 Hist H125 No H125 B, 2-19 oric ped/ 98 al adol Info rmat ion - Sour ce Unsp ecif ied DTP- 10-0 22 999 Hist H149 No H149 Hib 2-19 oric 97 al Info rmat ion - Sour ce Unsp ecif ied [place] 07-3 10 999 Hist H149 No H149 o-IP 1-19 oric V 97 al Info rmat ion - Sour ce Unsp ecif ied DT, 07-3 28 999 Hist H149 No H149 ped 1-19 oric 97 al Info rmat ion - Sour ce Unsp ecif ied [place] 05-0 10 999 Hist H149 No H149 o-IP 1-19 oric V 97 al Info rmat ion - Sour ce Unsp ecif ied DTP- 05-0 22 999 Hist H149 No H149 Hib 1-19 oric 97 al Info rmat ion - Sour ce Unsp ecif ied Hep 02-2 8 999 Hist H149 No H149 B, 8-19 ori ped/ 97 al adol Info rmat ion - Sour ce Unsp ecif ied
--- OUTSIDE RECORDS SUMMARY | 2017-08-12 02:31 | External Medical Summary Rpt | CCD ---
Author Author , DANA Miramontes DANA Address Unknown Phone [email or web address] Care Team Providers Care Retail Pos Specialist Name Role Phone A Soniya ELIZABETH MD [...] Unavailable MARINA ELIZABETH, MARINA Unavailable Unavailable [facility]IZABETH [facility] Un[facility] Un[facility], [facility] Unavailable Unavailable HOSPITAL P, [facility], Unavailable Unavailable [facility] Unavailable Unavailable IMAGING [facility], [facility] KILPELA JEA, KILPELA Unavailable Unavailable JEA ILA JR DWI, ILA Unavailable Unavailable JR DWI [facility], Unavailable Unavailable PLL[facility], [facility] Unavailable Unavailable SADEK MOH, SADEK MOH Unavailable Unavailable SCIFRES ANG, SCIFRES Unavailable Unavailable ANG SCIFRES ANG, SCIFRES Unavailable Unavailable ANG SOTINGEAAliceU MELO, Unavailable [facility]available [facility], Unavailable Unavailable [facility] CLARA A, CLARA A Unavailable Unavailable Purpose Continuity of Care Document - 05-17-2014 through 2016 Problems Code Diagnosis DOS Provider Status J029 ACUTE 11-05-2016 [facility] PHARYNGITIS UNSPECIFIED J069 ACUTE UPPER 11-05-2016 [facility] RESPIRATORY INFECTION UNSPECIFIED R51 HEADACHE 08-30-2016 [facility] R55 SYNCOPE AND 08-30-2016 [facility] COLLAPSE [facility], [facility] [id number] FALL SAME 08-30-2016 [facility] P SUB STRIK OBJ INIT [id number] UNS PLACE 08-30-2016 [facility] UNS NON [facility] P PLACE OF OCCUR EXT N200 CALCULUS OF 07-26-2016 [facility] N23 UNSPECIFIED 07-26-2016 [facility] RENAL [facility], [facility] Z720 TOBACCO USE 07-26-2016 [facility] [id number] PERSONAL 07-26-2016 [facility] URINARY INC CALCULI N201 CALCULUS OF 05-06-2016 [facility] PSC N202 CALCULUS OF 05-06-2016 [facility] WITH CALCULUS OF URETER Z880 ALLERGY 05-06-2016 [facility] STATUS TO [facility]OSP[facility] N029 RECUR & 05-04-2016 [facility] P UNS MORPHOLOG CHANGES R109 UNSPECIFIED 04-27-2016 [facility] E860 DEHYDRATION 04-26-2016 [facility] N12 TUBULO-INTE 04-26-2016 [facility] RST [facility], NEPHRITIS PLLC NOT SPEC ACUTE/CHRON N132 HYDRONEPHRO 04-26-2016 [facility] SIS W/RENAL MEDICAL & URETRL [facility]AGING [facility] CALCULOUS OBST N139 OBSTRUCTIVE 04-26-2016 [facility] AND [facility] UROPATHY [facility] UNSPECIFIED N179 ACUTE 04-26-2016 [facility], FAILURE PLLC UNSPECIFIED R1110 VOMITING 04-26-2016 [facility]NSPECIFIED [facility] R112 NAUSEA WITH 04-26-2016 [facility] VOMITING [facility], UNSPECIFIED PLLC [id number] LACERATION 04-25-2016 [facility] W/O FB PHYSICIANS, OTHER PART PLLC HEAD INITIAL ENC R1030 LOWER 04-11-2016 [facility] ABDOMINAL PH[facility], PAIN PLLC UNSPECIFIED R1031 RIGHT LOWER 04-11-2016 [facility] R197 DIARRHEA 04-11-2016 [facility] [id number] CONTUSION 03-08-2016 [facility] OF RIGHT PHYSICIANS, HAND PLLC INITIAL ENCOUNTER [id number] UNSPECIFIED 03-08-2016 [place] INJURY RT MEDICAL WRIST HAND IMAGING ASS FINGERS INITIAL A83435 PERSONAL 03-08-2016 [facility] NICOTINE INC DEPENDENCE H5203 HYPERMETROP 02-06-2016 SCIFRES ANG IA BILATERAL J0190 ACUTE 01-19-2016 [facility] LULY SINUSITIS UNSPECIFIED J209 ACUTE 01-19-2016 JOSEPH LULY BRONCHITIS UNSPECIFIED Z66992 PAIN IN 01-19-2016 [place] [facility] [id number] UNSPECIFIED 01-19-2016 ARNCORRIE LULY INJURY UNS WRIST HAND FINGERS INIT 4660 ACUTE 07-18-2015 JOSEPH MAURICIO BRONCHITIS 42431 UNSPECIFIED 03-19-2015 A Soniya ELIZABETH VIRAL PSC INFECTION IN CCE & UNS SITE 4619 ACUTE 02-13-2015 JOSEPH LULY SINUSITIS, UNSPECIFIED 8910 OPEN WOUND 02-11-2015 A Soniya ELIZABETH KNEE PSC LEG&ANK WITHOUT MENTION COMP 59175 NONSPEC 01-31-2015 A Soniya ELIZABETH REACT PSC TUBERCULIN SKIN TEST W/O ACTIVE TB V1549 OTH PERS HX 01-30-2015 DEPT FOR PUBLIC [facility] PSYCHOLOGIC AL TRAUMA PRS HAZS HLTH 462 ACUTE 01-29-2015 A Soniya ELIZABETH PHARYNGITIS PSC 7862 COUGH 01-29-2015 A Soniya ELIZABETH MD PSC 9190 ABRASION/FR 01-29-2015 [facility]ION [facility] OT MX&UNS HOSPITAL P SITE W/O INF E8498 OTHER 01-29-2015 [facility] PLACE OF HOSPITAL P OCCURRENCE E8849 OTHER 01-29-2015 [place] [facility] FALL FROM HOSPITAL P ONE LEVEL TO ANOTHER V851 BODY MASS 01-29-2015 A Soniya ELIZABETH INDEX PSC BETWEEN 19-24 ADULT 4659 ACUTE URIS 01-06-2015 A Soniya RAMIRES [facility] UNSPECIFIED SITE 0340 STREPTOCOCC 10-08-[address] [facility] 7841 THROAT PAIN 08-01-2014 A Soniya ELIZABETH MD PSC V202 ROUTINE 05-17-2014 FIELD AMB INFANT OR CHILD HEALTH CHECK Medications Na ND Rx Da Fi Fi [...] ED #5 -D 91 M SY R NE 57 07 08 30 30 00 WA Ac RT 23 -1 -1 .0 00 L- ti AZ 70 2- 1- 00 07 MA ve AP 00 20 20 49 RT IN 83 17 17 84 E 0 97 PH 15 AR MA MG CY TA #5 BL 91 ET DO 00 01 02 20 10 00 EA Ac XY 14 -0 -[address] ti CY 33 6- 0- 00 00 SI ve CL 14 20 20 42 DE IN 25 17 17 76 E 0 42 PH HY AR CL MA AT CY E 10 OF 0 CY MG NT HI CA AN P A IN C CE 16 01 02 30 30 00 EA Ac TI 71 -0 -[address] ti RI 40 6- 0- 00 00 SI ve ZI 27 20 20 47 DE NE 10 17 17 15 3 50 PH HC AR L MA 10 CY MG OF CY TA NT BL HI ET AN A IN C MS 00 01 02 18 9 00 EA Ac OM 60 -0 -[address] ti ET 31 6- 0- 00 00 SI ve BAUTISTA 58 20 20 0 47 DE ZI 65 17 17 15 NE 8 51 PH -D AR M MA SY CY RU P OF CY NT HI AN A IN C LI 50 01 02 10 2 00 EA Ac DO 38 -0 -[address] ti CA 30 6- 0- 00 00 SI ve IN 77 20 20 0 47 DE E 50 17 17 15 2% 4 53 PH AR MA SC CY OU S OF SO CY LN NT HI AN A IN C VE 00 01 02 18 18 00 EA Ac NT 17 -0 -[address] ti OL 30 6- 0- 00 00 SI ve IN 68 20 20 47 DE 22 17 17 15 HF 0 54 PH A AR 90 MA CY MC G OF IN CY BAUTISTA NT LE HI R AN A IN C Procedures Procedure DOS Code Location Performer Comment ECG 92272 [facility] THORPE JR ROUTINE 6 [facility] W/LEAST P 12 LDS I&[place] [address] MAGGI CARDONA HEAD/BRAI 6 MEDICAL EDGAR N W/[place] [address] NAT[facility] LU[facility] INFUSION 6 [facility] THERAPY/P INC INC ROPHYLAXI S /DX 1ST TO 1 HR THERAPEUT 72142 NATTY [facility] IC 6 [facility] INJECTION INC [place] [address] [facility] ABDOMEN & 6 [facility] PELVIS INC INC W/O CONTRAST MATERIAL COMPREHEN 21808 [facility] SIVE 6 [facility] METABOLIC INC INC PANEL BLOOD 16501 [facility] COUNT 6 [facility] HOSP COMPLETE INC INC AUTO&AUTO DIFRNTL WBC URNLS DIP 65928 NATTYJOSEPH LUZ 6 [facility] STICK/TAB INC INC LET REAGENT AUTO MICROSCOP Y INJECTION J[address] ACETAMINO PHEN 10 MG ANES 96346 ANESTHESI [facility] TRURL 6 A FRAGMNTJ ASSOCIATE MANJ&/RMV S PSC L URETERAL CALCULUS INJECTION J24[address] ONDANSETR ON HCL PER 1 MG INJECTION J[address] DEXAMETHO SONE SODIUM PHOSPHATE 1 MG INJECTION J1956 [address] LEVOFLOXA ADY 250 MG INJECTION J2001 [address] LIDOCAINE HCL INTRAVENO US INFUS 10 MG CYSTO 74796 [facility] W/URETERO [address] [place] [address] SCOPY W/RMVL/MA [place] STONES INJECTION J[address] KETOROLAC TROMETHAM INE PER 15 MG INJECTION J2704 [facility] PROPOFOL [address] [place] [address] 10 MG INJECTION J3010 [facility] FENTANYL [address] [place] [address] CITRATE 0.1 MG CALCULUS 61722 [facility] INFRARED [address] [place] [address] SPECTROSC OPY CYSTO 42695 [facility] W/INSERT [address] [place] [address] URETERAL STENT STENT C2617 [facility] NON-COR [address] [place] [address] TEMPORARY WITHOUT DELIVERY SYSTEM OBSERVATI 76389 [facility] 6 [facility] ABHIJIT DISCHARGE INTERNAL MED MANAGEMEN T RADEX 78494 [facility] ABDOMEN 1 6 [facility] HOSP INC INC ANTEROPOS TERIOR VIEW UNCLASSIF J3490 [facility] IED DRUGS 6 [facility] HOSP INC INC COLLECTIO 64625 [facility] N VENOUS 6 [facility] BLOOD INC INC VENIPUNCT [facility] G0378 NATTY [facility] OBSERVATI 6 [facility] H[facility] ON INC INC SERVICE PER HOUR COMPREHEN 53245 [facility] SIVE 6 [facility] METABOLIC INC INC PANEL BLOOD 85864 [facility] COUNT 6 [facility] COMPLETE INC INC AUTO&AUTO DIFRNTL WBC URNLS DIP 45948 [facility] LUZ 6 [facility] STICK/TAB INC INC LET REAGENT AUTO MICROSCOP Y INITIAL 84985 [place] MAISHA OBSERVATI 6 [facility] ON INTERNAL CARE/DAY MED 30 MINUTES TOBACCO 43334 [facility]Z USE 6 [facility] CESSATION INC INC INTERMEDI ATE 3-10 MINUTES BLOOD 94241 NATTY LZU COUNT 6 [facility] COMPLETE INC INC AUTO&[place] [address] NATTY DOBSONON AMYLASE 6 [facility] INC INC HOSPITAL G0378 NAT[facility] LUZ OBSERVATI 6 [facility] [place] [address] NATTY [facility] INFUSION 6 [facility] THER INC INC PROPH ADDL SEQUENTIA L TO 1 HR UNCLASSIF J3490 [facility] IED DRUGS 6 [facility] INC INC COMPREHEN 87684 NAT[facility] SIVE 6 [facility] [place] [address] NATTY LU[facility] LIPASE 6 [facility] [place] [address] NAT[facility] LUZ INFUSION 6 [facility] THERAPY INC INC PROPHYLAX IS/DX EA HOUR RADEX 17893 [facility] ABDOMEN 1 6 [facility] INC INC ANTEROPOS TERIOR VIEW CULTURE 51438 [facility] BACTERIAL 6 [facility] INC [place] [address] NAT[facility]Z ABDOMEN & 6 [facility] PELVIS INC INC W/CONTRAS T MATERIAL THERAPEUT 77564 [facility]Z IC 6 [facility] INJECTION INC INC IV PUSH EACH NEW DRUG SIMPLE 37615 KM FAUSTIN REPAIR 6 PHYSICIAN U MELO F/E/E/N/L S, PLLC /M 2.6CM-5.0 CM BLOOD 31722 [facility] COUNT 6 [facility] COMPLETE INC INC AUTO&AUTO DIFRNTL WBC URNLS DIP 74076 NAT[facility] LUZ 6 [facility] STICK/TAB INC INC LET REAGENT AUTO MICROSCOP Y LOCM Q9967 [facility]Z 300-399 6 [facility] MG/ML INC INC IODINE CONCENTRA TION PER ML COMPREHEN 40523 NATTY LUZ SIVE 6 [facility] [place] [address] MAGGI VAZQUEZ ALL ABDOMEN & 6 MEDICAL PELVIS IMAGING W/CONTRAS ASS T MATERIAL UNCLASSIF J3490 [facility] IED DRUGS 6 [facility] INC INC RADEX 17812 [facility] VA[facility] ALL HAND 2 6 MEDICAL VIEWS IMAGING ASS UNCLASSIF J3490 [facility]Z IED DRUGS 6 [facility] INC INC THERAPEUT 17466 [facility] IC 6 [facility] PROPHYLAC INC INC TIC/DX INJECTION SUBQ/IM RADEX 99184 [facility] HAND 6 [facility] MINIMUM 3 INC INC VIEWS OPHTH 42962 SCIFRES SCIFRES MEDICAL 6 ANG ANG XM&EVAL COMPRHNSV ESTAB PT 1/> SCRATCH V2760 SCIFRES SCIFRES RESISTANT 6 ANG ANG COATING PER LENS LENS V2784 SCIFRES SCIFRES POLYCARBO 6 ANG ANG PILAR OR EQUAL ANY INDEX PER LENS SPHERE V2100 SCIFRES SCIFRES SINGLE 6 ANG ANG VISION PLANO +/- 4.00 PER LENS FITTING 00996 SCIFRES SCIFRES SPECTACLE 6 ANG ANG S XCPT APHAKIA MONOFOCAL FRAMES V2020 SCIFRES SCIFRES PURCHASES 6 ANG ANG RADEX 67623 [place] [facility] HAND 6 MEDICAL EDGAR MINIMUM 3 IMAGING VIEWS ASS IAADIADOO 09060 Rain ELIZABETH MD STREPTOCO PSC CCUS GROUP A SMPL 89430 NATTY GRAY REPAIR 5 [facility] K/AX/CONNIE P T/TRUNK 2.6-7.5CM BLOOD 58576 A Soniya ELIZABETH A COUNT 5 [facility] COMPLETE PSC AUTO&AUTO DIFRNTL WBC IAADIADOO 63066 A Soniya TAVERA AMB 5 [facility] RICH[facility] STREPTOCO PSC CCUS GROUP A THERAPEUT [address] [facility] IC 4 PHYSICIAN ELIZABETH PROPHYLAC S GROUP TIC/DX INJECTION SUBQ/IM INJECTION J1040 [facility] 4 PHYSICIAN ELIZABETH METHYLPRE S GROUP DNISOLONE ACETATE 80 MG IAADIADOO 12314 Rain Rodrigez 4 [facility] RICH[facility]DSON STREPTOCO PSC CCUS GROUP A IAADIADOO 46897 A Soniya NIEVES 4 [facility] R[facility] JEA STREPTOCO PSC CCUS GROUP A Encounters Encounter Start End Date Code Location Performer Type Date OFFICE 64862 JOSEPH RUIZ OUTPATI 7 7 T VISIT 15 MINUTES EMERGENCY [address] [facility] 6 6 PHYSICIAN VISIT S, PLLC HIGH SEVERITY& THREAT FUN EMERGENCY 75240 NATTY 6 6 [facility] DEPARTMEN INC T VISIT MODERATE SEVERITY HOSPITAL [facility] - 6 6 [facility] OUTPATIEN INC T EMERGENCY [address] [facility] 6 [facility]YSIC[facility], [facility] H[facility]/URGE NT SEVERITY [facility] - 6 6 HOSPITAL OUTPATIEN T OFFICE 51359 NATTY VENEGAS OUTPATIEN 6 6 [facility] 10 P MINUTES EMERGENCY 92248 [facility] PHYSICIAN U MELO VISIT S, PLLC HIGH SEVERITY& THREAT [facility] - 6 6 [facility] OUTPATIEN INC T EMERGENCY 60853 NATTY 6 6 [facility] DEPARTMEN INC T VISIT HIGH/URGE NT SEVERITY EMERGENCY 74720 K[facility] FAUSTIN 6 6 PHYSICIAN U MELO DEPARTMEN S, [facility] T VISIT MODERATE SEVERITY EMERGENCY 08047 NATTY 6 6 [facility] DEPARTMEN INC T VISIT LOW/MODER SEVERITY EMERGENCY 93463 [facility] FAUSTIN DEPT 6 6 PHYSICIAN U MELO VISIT S, [facility] HIGH SEVERITY& THREAT [facility] - 6 6 [facility] OUTPATIEN INC T HOSPITAL NAT[facility] - 6 6 [facility] OUTPATIEN INC T EMERGENCY [address] [facility] 6 6 PHYSICIAN DEPARTMEN S, [facility] T VISIT MODERATE SEVERITY EMERGENCY 27483 NATTY 6 6 [facility] DEPARTMEN INC T VISIT LOW/MODER SEVERITY OFFICE 41906 JOSEPH COLBERT 6 6 LULY LULY T VISIT 15 MINUTES OFFICE 99244 JOSEPH COLBERT 6 6 LULY LULY T VISIT 15 MINUTES OFFICE 88003 JOSEPH COLBERT 5 5 LULY LULY T VISIT 15 MINUTES OFFICE 56389 JOSEPH COLBERT 5 5 LULY LULY T VISIT 15 MINUTES OFFICE 23448 A Soniya NIEVES OUTPATIEN 5 5 CLARA MCCORMACK T VISIT PSC 15 MINUTES OFFICE 36819 JOSEPH COLBERT 5 5 LULY LULY T VISIT 15 MINUTES OFFICE 68641 Rain NIEVES OUTPATIEN 5 5 CLARA MCCORMACK T VISIT PSC 15 MINUTES OFFICE 02933 A Soniya Rodrigez OUTPATIEN 5 5 [facility] T VISIT 5 PSC MINUTES OFFICE 42544 Rain DE PAZ OUTPATIEN 5 5 [facility] T VISIT PSC 15 MINUTES EMERGENCY 90039 NATTY GRAY 5 5 [facility] T VISIT P LIMITED/M INOR PROB OFFICE 80452 A Soniya Rodrigez OUTPATIEN 5 5 [facility] T VISIT PSC 15 MINUTES OFFICE 18636 A Soniya TAVERA AMB OUTPATIEN 5 5 [facility] T VISIT PSC 15 MIN[address]ES OFF[address] [facility] OUTPATIEN 4 4 PHYSICIAN [facility] T VISIT S GROUP 15 MINUTES OFFICE 19258 A Soniya Rodrigez OUTPATIEN 4 4 [facility] T VISIT PSC 15 MINUTES OFFICE 29000 A Soniya NIEVES OUTPATIEN 4 4 [facility] JERain T VISIT PSC 15 MINUTES PERIODIC 71294 FIELD AMB FIELD AMB PREVENTIV 4 4 E MED EST PATIENT 12-17YRS
--- OUTSIDE RECORDS SUMMARY | 2017-08-12 02:31 | External Medical Summary Rpt | CCD ---
Author Author , DANA Miramontes DANA Address Unknown Phone [email or web address] Care Team Providers Care Pre Sales Technical Consultant Name Role Phone A Soniya ELIZABETH MD [...] Unavailable Unavailable INC, [facility] Unavailable Unavailable HOSPITAL P, [facility], Unavailable Unavailable [facility] Unavailable Unavailable IM[facility]ING [facility], [facility] KILPELA JEA, KILPELA Unavailable Unavailable JEA ILA [facility] DW[facility], ILA Unavailable Unavailable JR DWI [facility], Unavailable Unavailable PLLC, [facility], [facility], [facility] Unavailable Unavailable SADEK MOH, SADEK MOH Unavailable Unavailable SCIFRES ANG, SCIFRES Unavailable Unavailable ANG SCIFRES ANG, SCIFRES Unavailable Unavailable ANG SOTINGEAAliceU MELO, Unavailable Unavailable [facility], Unavailable Unavailable [facility] CLARA A, CLARA A Unavailable Unavailable Purpose Continuity of Care Document - 05-17-2014 through 2016 Problems Code Diagnosis DOS Provider Status J029 ACUTE 11-05-2016 [facility] PHARYNGITIS UNSPECIFIED J069 ACUTE UPPER 11-05-2016 [facility] RESPIRATORY INFECTION UNSPECIFIED R51 HEADACHE 08-30-2016 [facility], [facility] R55 SYNCOPE AND 08-30-2016 [facility] COLLAPSE [facility], [facility] [id number] FALL SAME 08-30-2016 NAT[facility] LEVL [facility] TRIP W/O HOSPITAL P SUB STRIK OBJ INIT [id number] UNS PLACE 08-30-2016 NATTY UNS NON [facility] RES HOSPITAL P PLACE OF OCCUR EXT N200 CALCULUS OF 07-26-2016 [facility] N23 UNSPECIFIED 07-26-2016 [facility] RENAL PHYSICIANS, COLIC PLLC Z720 TOBACCO USE 07-26-2016 [facility] [id number] PERSONAL 07-26-2016 [facility] HISTORY OF MEM HOSP URINARY INC CALCULI N201 CALCULUS OF 05-06-2016 [facility] PSC N202 CALCULUS OF 05-06-2016 [facility] WITH CALCULUS OF URETER Z880 ALLERGY 05-06-2016 [facility] STATUS TO HOSPITAL PENICILLIN N029 RECUR & 05-04-2016 [facility] P UNS MORPHOLOG CHANGES R109 UNSPECIFIED 04-27-2016 [facility] A[facility]OM[facility]AL [facility] PAIN IMAGING ASS E860 DEHYDRATION 04-26-2016 [facility] N12 TUBULO-INTE 04-26-2016 [facility] RST PHYSICIANS, NEPHRITIS PLLC NOT SPEC ACUTE/CHRON N132 HYDRONEPHRO 04-26-2016 [facility] SIS W/RENAL MEDICAL & URETRL IMAGING ASS CALCULOUS OBST N139 OBSTRUCTIVE 04-26-2016 [place] AND REFLUX MEDICAL UROPATHY IMAGING ASS UNSPECIFIED N179 ACUTE 04-26-2016 [facility], FAILURE PLLC UNSPECIFIED R1110 VOMITING 04-26-2016 [facility] UNSPECIFIED [facility] IM[facility]ING ASS R112 NAUSEA WITH 04-26-2016 [facility] VOMITING PHYSICIANS, UNSPECIFIED PLLC [id number] LACERATION 04-25-2016 [facility] W/O FB PHYSICIANS, OTHER PART PLLC HEAD INITIAL ENC R1030 LOWER 04-11-2016 [facility] ABDOMINAL PHYSICIANS, PAIN PLLC UNSPECIFIED R1031 RIGHT LOWER 04-11-2016 [facility] R197 DIARRHEA 04-11-2016 [facility] [id number] CONTUSION 03-08-2016 [facility] OF RIGHT PHYSICIANS, HAND PLLC INITIAL ENCOUNTER [id number] UNSPECIFIED 03-08-2016 [place] INJURY RT MEDICAL WRIST HAND IMAGING ASS FINGERS INITIAL K84092 PERSONAL 03-08-2016 [facility] HISTORY [facility] MEM HOS[facility] NICOTINE INC DEPENDENCE H5203 HYPERMETROP 02-06-2016 SCIFRES ANG IA BILATERAL J0190 ACUTE 01-19-2016 [facility]OLD LULY SINUSITIS UNSPECIFIED J209 ACUTE 01-19-2016 JOSEPH LULY BRONCHITIS UNSPECIFIED I71974 PAIN IN 01-19-2016 [place] [facility] [id number] UNSPECIFIED 01-19-2016 ARNCORRIE LULY INJURY UNS WRIST HAND FINGERS INIT 4660 ACUTE 07-18-2015 JOSEPH MAURICIO BRONCHITIS 66884 UNSPECIFIED 03-19-2015 A Soniya ELIZABETH VIRAL PSC INFECTION IN CCE & UNS SITE 4619 ACUTE 02-13-2015 JOSEPH LULY SINUSITIS, UNSPECIFIED 8910 OPEN WOUND 02-11-2015 A Soniya ELIZABETH KNEE PSC LEG&ANK WITHOUT MENTION COMP 26891 NONSPEC 01-31-2015 A Soniya ELIZABETH REACT PSC TUBERCULIN SKIN TEST W/O ACTIVE TB V1549 OTH PERS HX 01-30-2015 DEPT FOR PUBLIC [facility] PSYCHOLOGIC AL TRAUMA PRS HAZS HLTH 462 ACUTE 01-29-2015 A Soniya ELIZABETH PHARYNGITIS PSC 7862 COUGH 01-29-2015 A Soniya ELIZABETH MD PSC 9190 ABRASION/FR 01-29-2015 NATTY ICION [facility] OT MX&UNS HOSPITAL P SITE W/O INF E8498 OTHER 01-29-[address] [facility] PLACE OF HOSPITAL P OCCURRENCE E8849 OTHER 01-29-2015 [facility] ACCIDENTAL [facility] FALL FROM HOSPITAL P ONE LEVEL TO ANOTHER V851 BODY MASS 01-29-2015 A Soniya ELIZABETH INDEX PSC BETWEEN 19-24 ADULT 4659 ACUTE URIS 01-06-2015 A Soniya RAMIRES [facility] UNSPECIFIED SITE 0340 STREPTOCOCC 10-08-2014 [facility] AL SORE PHYSICIANS THROAT GROUP 7841 [...] ED #5 -D 91 M SY R CO 57 07 08 30 30 00 WA [...] BL HI ET AN A IN C SC 00 01 02 18 9 00 EA [...] Procedure DOS Code Location Performer Comment ECG 31756 NATTY THORPE JR ROUTINE 6 [facility] W/LEAST P 12 LDS I&[place] [address] MAGGI CARDONA HEAD/BRAI 6 MEDICAL EDGAR N W/[place] [address] NATTY LUZ INFUSION 6 [facility] THERAPY/P INC INC ROPHYLAXI S /DX 1ST TO 1 HR THERAPEUT 18041 NATTY LUZ IC 6 MEM [facility]OS[facility] MEM [facility]OS[facility] INJECTION INC [place] [address] NATTY LUZ ABDOMEN & 6 MEM H[facility] MEM [facility]OS[facility] PELVIS INC INC W/O CONTRAST MATERIAL COMPREHEN 78962 [facility] SIVE 6 [facility] METABOLIC INC INC PANEL BLOOD 16858 [facility] COUNT 6 [facility] COMPLETE INC INC AUTO&AUTO DIFRNTL WBC URNLS DIP 81894 NATTYJOSEPH LUZ 6 [facility] STICK/TAB INC INC LET REAGENT AUTO MICROSCOP Y INJECTION J[address] ACETAMINO PHEN 10 MG ANES 13961 [facility]ESTHESI [facility] TRURL 6 A FRAGMNTJ ASSOCIATE MANJ&/RMV S PSC L URETERAL CALCULUS INJECTION J24[address] ONDANSETR ON HCL PER 1 MG INJECTION J[address] DEXAMETHO SONE SODIUM PHOSPHATE 1 MG INJECTION J1956 [address] LEVOFLOXA ADY 250 MG INJECTION J2001 [address] LIDOCAINE HCL INTRAVENO US INFUS 10 MG CYSTO [address] [facility] W/URETERO [address] [place] [address] SCOPY W/RMVL/MA [place] STONES INJECTION J1885 [address] KETOROLAC TROMETHAM INE PER 15 MG INJECTION J2704 [facility] PROPOFOL [address] [place] [address] 10 MG INJECTION J3010 [facility] FENTANYL [address] [place] [address] CITRATE 0.1 MG CALCULUS 70513 [facility] INFRARED [address] [place] [address] SPECTROSC OPY CYSTO 94057 [facility] W/INSERT [address] [place] [address] URETERAL STENT STENT C2617 [facility] NON-COR [address] [place] [address] TEMPORARY WITHOUT DELIVERY SYSTEM OBSERVATI 02672 [place] B[facility] ON CARE 6 [place] ABHIJIT DISCHARGE INTERNAL MED MANAGEMEN T RADEX 60543 [facility] ABDOMEN 1 6 [facility] INC INC ANTEROPOS TERIOR VIEW UNCLASSIF J3490 NAT[facility] IED DRUGS 6 [facility] INC INC COLLECTIO 18624 NAT[facility] N VENOUS 6 MEM HOSP MEM HOS[facility] BLOOD INC INC VENIPUNCT [facility] G0378 NAT[facility] LUZ OBSERVATI 6 MEM HOSP [facility] ON INC INC SERVICE PER HOUR COMPREHEN 92094 NAT[facility] SIVE 6 MEM HOSP MEM HOSP METABOLIC INC INC PANEL BLOOD 51069 NAT[facility] COUNT 6 [facility] MEM [facility]OS[facility] COMPLETE INC INC AUTO&AUTO DIFRNTL WBC URNLS DIP 46441 NAT[facility] LUZ 6 [facility] STICK/TAB INC INC LET REAGENT AUTO MICROSCOP Y INITIAL 89347 [place] MAISHA OBSERVATI 6 [facility] ON INTERNAL CARE/DAY MED 30 MINUTES TOBACCO 19317 NAT[facility] USE 6 [facility] CESSATION INC INC INTERMEDI ATE 3-10 MINUTES BLOOD 68355 NAT[facility] COUNT 6 [facility] COMPLETE INC INC AUTO&[place] [address] NATTY DOBSONON AMYLASE 6 [facility] INC INC HOSPITAL G0378 NATTY LUZ OBSERVATI 6 [facility] [place] [address] NATTY LUZ INFUSION 6 [facility] THER INC INC PROPH ADDL SEQUENTIA L TO 1 HR UNCLASSIF J3490 NATTY LUZ IED DRUGS 6 [facility] INC INC COMPREHEN 56295 NATTY LUZ SIVE 6 [facility] [place] [address] NATTY LUZ LIPASE 6 [facility] [place] [address] NATTY LUZ INFUSION 6 [facility] THERAPY INC INC PROPHYLAX IS/DX EA HOUR RADEX 33954 NATTY LUZ ABDOMEN 1 6 [facility] INC INC ANTEROPOS TERIOR VIEW CULTURE 03191 NATTY LUZ BACTERIAL 6 [facility] INC [place] [address] NATTY LUZ ABDOMEN & 6 [facility] PELVIS INC INC W/CONTRAS T MATERIAL THERAPEUT 73562 NATTY LUZ IC 6 [facility] INJECTION INC INC IV PUSH EACH NEW DRUG SIMPLE 18555 KM FAUSTIN REPAIR 6 PHYSICIAN U MELO F/E/E/N/L S, PLLC /M 2.6CM-5.0 CM BLOOD 19788 NAT[facility] LUZ COUNT 6 MEM HOS[facility] MEM [facility]OS[facility] COMPLETE INC INC AUTO&AUTO DIFRNTL WBC URNLS DIP 39402 NATTY LUZ 6 MEM HOSP MEM HOSP STICK/TAB INC INC LET REAGENT AUTO MICROSCOP Y LOCM Q9967 NATTY LUZ [phone] 6 MEM HOSP [facility]OS[facility] MG/ML INC INC IODINE CONCENTRA TION PER ML COMPREHEN 33843 [facility] SIVE 6 [facility] [place] [address] MAGGI VAZQUEZ ALL ABDOMEN & 6 MEDICAL PELVIS IMAGING W/CONTRAS ASS T MATERIAL UNCLASSIF J3490 NATTY LUZ IED DRUGS 6 MEM HOS[facility] MEM [facility]OS[facility] INC INC RADEX 97518 [facility] ALL HAND 2 6 MEDICAL VIEWS IMAGING ASS UNCLASSIF J3490 NATTY LUZ IED DRUGS 6 MEM H[facility] MEM HOS[facility] INC INC THERAPEUT 59136 NATTY LUZ IC 6 MEM [facility]OS[facility] PROPHYLAC INC INC TIC/DX INJECTION SUBQ/IM RADEX 74266 [facility] LUZ HAND 6 MEM [facility] MEM [facility]OS[facility] MINIMUM 3 INC INC VIEWS OPHTH 82713 SCIFRES SCIFRES MEDICAL 6 ANG ANG XM&EVAL COMPRHNSV ESTAB PT 1/> SCRATCH V2760 SCIFRES SCIFRES RESISTANT 6 ANG ANG COATING PER LENS LENS V2784 SCIFRES SCIFRES POLYCARBO 6 ANG ANG PILAR OR EQUAL ANY INDEX PER LENS SPHERE V2100 SCIFRES SCIFRES SINGLE 6 ANG ANG VISION PLANO +/- 4.00 PER LENS FITTING 63589 SCIFRES SCIFRES SPECTACLE 6 ANG ANG S XCPT APHAKIA MONOFOCAL FRAMES V2020 SCIFRES SCIFRES PURCHASES 6 ANG ANG RADEX 58601 [facility] BRENDAN HAND 6 MEDICAL EDGAR MINIMUM 3 IMAGING VIEWS ASS IAADIADOO 93132 Rain ELIZABETH MD STREPTOCO PSC CCUS GROUP A SMPL 52391 NATTY GRAY REPAIR 5 [facility] K/AX/CONNIE P T/TRUNK 2.6-7.5CM BLOOD 20534 A Soniya ELIZABETH A COUNT 5 CLARA RICHARDSON COMPLETE PSC AUTO&AUTO DIFRNTL WBC IAADIADOO 92047 A Soniya TAVERA AMB 5 CLARA RICHARDSON STREPTOCO PSC CCUS GROUP A THERAPEUT 49287 [facility] MARINA IC 4 PHYSICIAN ELIZABETH PROPHYLAC S GROUP TIC/DX INJECTION SUBQ/IM INJECTION J1040 [facility] MARINA 4 PHYSICIAN ELIZABETH METHYLPRE S GROUP DNISOLONE ACETATE 80 MG IAADIADOO 34106 Rain Rodrigez 4 CLARA RICHARDSON STREPTOCO PSC CCUS GROUP A IAADIADOO 48693 A Soniya NIEVES 4 CLARA RICHARDSON JEA STREPTOCO PSC CCUS GROUP A Encounters Encounter Start End Date Code Location Performer Type Date OFFICE 88476 JOSEPH RUIZ OUTPATI 7 7 T VISIT 15 MINUTES EMERGENCY 29544 KM FOFANA [facility] DEPT 6 6 PHYSICIAN VISIT S, PLLC HIGH SEVERITY& THREAT FUN EMERGENCY 29858 NATTY 6 6 [facility] DEPARTMEN INC T VISIT MODERATE SEVERITY HOSPITAL [facility] - 6 6 [facility] OUTPATIEN INC T EMERGENCY 79569 KM FOFANA [facility] 6 6 PHYSICIAN [facility], [facility] HIGH/URGE NT SEVERITY HOSPITAL [facility] - 6 6 HOSPITAL OUTPATIEN T OFFICE 00375 NATTY VENEGAS OUTPATIEN 6 6 [facility] VISIT HOSPITAL 10 P MINUTES EMERGENCY 19502 [facility] PHYSICIAN U MELO VISIT S, PLLC HIGH SEVERITY& THREAT [facility] - 6 6 [facility] OUTPATIEN INC T EMERGENCY 20671 NATTY 6 6 MEM HOS[facility] DEPARTMEN INC T VISIT HIGH/URGE NT SEVERITY EMERGENCY 83317 KM FAUSTIN 6 6 PHYSICIAN U MELO DEPARTMEN S, [facility] T VISIT MODERATE SEVERITY EMERGENCY 49037 NATTY 6 6 MEM HOSP DEPARTMEN INC T VISIT LOW/MODER SEVERITY EMERGENCY 70460 KM FAUSTIN DEPT 6 6 PHYSICIAN U MELO VISIT S, [facility] HIGH SEVERITY& THREAT [facility] - 6 6 [facility] OUTPATIEN INC T HOSPITAL NATTY - 6 6 [facility] OUTPATIEN INC T EMERGENCY 79071 KM FOFANA [facility] 6 6 PHYSICIAN DEPARTMEN S, [facility] T VISIT MODERATE SEVERITY EMERGENCY 88186 NATTY 6 6 [facility] DEPARTMEN INC T VISIT LOW/MODER SEVERITY OFFICE 98157 JOSEPH COLBERT 6 6 LULY LULY T VISIT 15 MINUTES OFFICE 23930 JOSEPH COLBERT 6 6 LULY LULY T VISIT 15 MINUTES OFFICE 79986 JOSEPH COLBERT 5 5 LULY LULY T VISIT 15 MINUTES OFFICE 20218 JOSEPH COLBERT 5 5 LULY LULY T VISIT 15 MINUTES OFFICE 73518 A Soniya NIEVES OUTPATIEN 5 5 CLARA MCCORMACK T VISIT PSC 15 MINUTES OFFICE 15535 JOSEPH COLBERT 5 5 LULY LULY T VISIT 15 MINUTES OFFICE 43615 Rain NIEVES OUTPATIEN 5 5 CLARA MCCORMACK T VISIT PSC 15 MINUTES OFFICE 37201 A Soniya Rodrigez OUTPATIEN 5 5 [facility]ICH[facility] T VISIT 5 PSC MINUTES OFFICE 05015 Rain DE PAZ OUTPATIEN 5 5 [facility] RICH[facility] T VISIT PSC 15 MINUTES EMERGENCY [address] [facility] T VISIT P LIMITED/M INOR PROB OFFICE 12852 A Soniya Rodrigez OUTPATIEN 5 5 [facility] T VISIT PSC 15 MINUTES OFFICE 15406 A Soniya TAVERA AMB OUTPATIEN 5 5 [facility] T VISIT PSC 15 MINUTES OFFICE 60286 [facility] MARINA OUTPATIEN 4 4 [facility] T VISIT S GROUP 15 MINUTES OFFICE 32965 A Soniya Rodrigez OUTPATIEN 4 4 [facility] T VISIT PSC 15 MINUTES OFFICE 74892 A Soniya NIEVES OUTPATIEN 4 4 [facility] RICH[facility] JERain T VISIT PSC 15 MINUTES PERIODIC 58802 FIELD AMB FIELD AMB PREVENTIV 4 4 E MED EST PATIENT 12-17YRS
--- OUTSIDE RECORDS SUMMARY | 2017-08-12 02:31 | External Medical Summary Rpt | CCD ---
Author Author , DANA Organization DANA Address Unknown Phone [email or web address] Immunization Name Date Rout CVX Reac Dose [...]
== END 2017-08-05 10:05 | disposition home or self-care (01) ==
LOC: UTC 09:15
DX: J06.9 Acute upper respiratory infection, unspecified (principal); F17.210 Nicotine dependence, cigarettes, uncomplicated

== ENCOUNTER 2017-09-29 14:13 | Emergency (ER) | payer SELFPAY ==
[~2017-09-29] VITALS: Ht 172.7 cm; Wt 59.0 kg
[~2017-09-29 14:13] MED LIST: BACTRIM DS 8001 TA1 PO; FLONASE 50 MCG16 GM; HYDROCODONE-APA1 TA1 PO; KEFLEX 500MG.500 MG PO; LEVAQUIN500 MG PO; MEDROL 4MG. DOSE4 MG PO; MOTRIN 600MG.600 MG PO; MOTRIN600 M1 PO; NOMEDS; NORCO 325 MG-51 TAB PO; TAMIFLU45 MG PO; TESSALON PERLE100 M1 PO; TORADOL10 MG PO; ZITHROMAX Z PA250 MG PO
--- OUTSIDE RECORDS SUMMARY | 2017-09-29 14:26 | External Medical Summary Rpt | CCD ---
Author Author , DANA CORTEZ Address Unknown Phone [email or web address] Care Team Providers Care Parachute Harness Rigger Name Role Phone A Soniya ELIZABETH MD PSC, A Unavailable Unavailable Soniya ELIZABETH MD PSC [facility] Unavailable Unavailable PSC, [facility] ARNOLD, NELSYOLD Unavailable Unavailable ARNOLD [facility], ARNOLD Unavailable Unavailable [facility], Unavailable Unavailable [facility], [facility] Unavailable Unavailable [facility] Unavailable Unavailable INC, [facility] Unavailable [facility]available HOSPITAL P, [facility], Unavailable Unavailable [facility], Unavailable Unavailable [facility] Unavailable Unavailable [facility], [facility], Unavailable Unavailable PLLC, [facility] SCIFRDANIELLE ANG, GILBERTO Unavailable Unavailable [facility], Unavailable Unavailable [facility] Purpose Continuity of Care Document - 01-14-2013 through 2016 Problems Code Diagnosis DOS Provider Status R05 COUGH 08-05-2017 [facility] J00 ACUTE 06-24-2017 [facility] NASOPHARYNG PHYSICIAN ITIS COMMON GROUP COLD J029 ACUTE 11-05-2016 [facility] PHARYNGITIS UNSPECIFIED J069 ACUTE UPPER 11-05-2016 [facility] RESPIRATORY INFECTION UNSPECIFIED R51 HEADACHE 08-30-2016 [facility], PLLC R55 SYNCOPE AND 08-30-2016 [facility] COLLAPSE PHYSICIANS, PLLSoniya [id number] FALL SAME 08-30-2016 [facility]O [facility] P SUB STRIK OBJ INIT Q89614 UNS PLACE 08-30-2016 [facility] NON [facility] RES HOSPITAL P PLACE OF OCCUR EXT N200 CALCULUS OF 07-26-2016 [place] [facility] N23 UNSPECIFIED 07-26-2016 [facility] RENAL PHYSICIANS, COLIC PLLC Z720 TOBACCO USE 07-26-2016 [facility] INC [id number] PERSONAL 07-26-2016 NATTY [facility]ORY [facility] HOS[facility] URINARY INC CALCULI N201 CALCULUS OF 05-06-2016 [facility] PSC N202 CALCULUS OF 05-06-2016 [facility] WITH CALCULUS OF URETER Z880 ALLERGY 05-06-2016 [facility] STATUS TO HOSPITAL PENICILLIN N029 RECUR & 05-04-[address] [facility] HOSPITAL P UNS MORPHOLOG CHANGES R109 UNSPECIFIED 04-27-2016 [facility]OM[facility]ICAL PAIN IMAGING ASS E860 DEHYDRATION 04-26-2016 [facility] INC N12 TUBULO-INTE 04-26-2016 [facility] RST PHYSICIANS, NEPHRITIS PLLC NOT SPEC ACUTE/CHRON N132 HYDRONEPHRO 04-26-2016 [facility] W/RENAL MEDICAL & URETRL IMAGING ASS CALCULOUS OBST N139 OBSTRUCTIVE 04-26-2016 [place] AND REFLUX MEDICAL UROPATHY IMAGING ASS UNSPECIFIED N179 ACUTE 04-26-2016 [facility] PH[facility], FAILURE PLLC UNSPECIFIED R1110 VOMITING 04-26-2016 [place] UNSPECIFIED MEDICAL IMAGING ASS R112 NAUSEA WITH 04-26-2016 [facility] VOMITING PHYSICIANS, UNSPECIFIED PLLC [id number] LACERATION 04-25-2016 KM W/O FB PHYSICIANS, OTHER PART PLLC HEAD INITIAL ENC R1030 LOWER 04-11-2016 [facility] ABDOMINAL PHYSICIANS, PAIN PLLC UNSPECIFIED R1031 RIGHT LOWER 04-11-2016 [place] [facility] IM[facility] R197 DIARRHEA 04-11-2016 [place] UNSPECIFIED MEDICAL IMAGING ASS [id number] CONTUSION 03-08-2016 [facility] OF RIGHT PHYSICIANS, HAND PLLC INITIAL ENCOUNTER [id number] UNSPECIFIED 03-08-2016 [place] INJURY RT MEDICAL WRIST HAND IMAGING ASS FINGERS INITIAL L98666 PERSONAL 03-08-2016 NATTY HISTORY OF MEM HOSP NICOTINE INC DEPENDENCE H5203 HYPERMETROP 02-06-2016 SCIFRES ANG IA BILATERAL J0190 ACUTE 01-19-2016 ARNOLD LULY SINUSITIS UNSPECIFIED J209 ACUTE 01-19-2016 ARNOLD LULY BRONCHITIS UNSPECIFIED A43457 PAIN IN 01-19-2016 [facility] MEDICAL IM[facility] ASS H6327FK UNSPECIFIED 01-19-2016 ARNOLD LULY INJURY UNS WRIST HAND FINGERS INIT 4660 ACUTE 07-18-2015 ARNOLD LULY BRONCHITIS 44016 UNSPECIFIED 03-19-2015 A Soniya ELIZABETH VIRAL PSC INFECTION IN CCE & UNS SITE 4619 ACUTE 02-13-2015 JOSEPH MAURICIO SINUSITIS, UNSPECIFIED 8910 OPEN WOUND 02-11-2015 A Soniya ELIZABETH KNEE PSC LEG&ANK WITHOUT MENTION COMP 64402 NONSPEC 01-31-2015 A Sonyia GRUBBS MD PSC TUBERCULIN SKIN TEST W/O ACTIVE TB V1549 OTH PERS HX 01-30-2015 [facility] PRS HAZS HLTH 462 ACUTE 01-29-2015 A Soniya ELIZABETH PHARYNGITIS PSC 7862 COUGH 01-29-2015 A Soniya ELIZABETH MD PSC 9190 ABRASION/FR 01-29-2015 [facility] OTH MX&UNS HOSPITAL P SITE W/O INF E8498 OTHER 01-29-2015 NATTY SPECIFIED [facility] PLACE OF HOSPITAL P OCCURRENCE E8849 OTHER 01-29-2015 NATTY ACCIDENTAL [facility] FALL FROM HOSPITAL P ONE LEVEL TO ANOTHER V851 BODY MASS 01-29-2015 A Soniya ELIZABETH INDEX PSC BETWEEN 19-24 ADULT 4659 ACUTE URIS 01-06-2015 A Soniya RAMIRES PSC UNSPECIFIED SITE 0340 STREPTOCOCC 10-08-2014 [facility] AL SORE PHYSICIANS THROAT GROUP 7841 THROAT PAIN 08-01-2014 A Soniya ELIZABETH MD PSC V202 ROUTINE 05-17-2014 FIELD AMB OR CHILD HEALTH CHECK E86.0 DEHYDRATION G44.309 POST-TRAUMA TIC HEADACHE, UNSPECIFIED , NOT INTRACTABLE N12 TUBULO-INTE RSTITIAL NEPHRITIS, NOT SPCF ACUTE OR CHRONIC N17.9 ACUTE KIDNEY FAILURE, UNSPECIFIED N20.1 CALCULUS OF URETER N23 UNSPECIFIED RENAL COLIC R10.9 UNSPECIFIED ABDOMINAL PAIN R11.2 NAUSEA WITH VOMITING, UNSPECIFIED R55 SYNCOPE AND COLLAPSE S60.221A CONTUSION OF RIGHT HAND, INITIAL ENCOUNTER S93.409A SPRAIN OF UNSP LIGAMENT OF UNSPECIFIED ANKLE, INIT ENCNTR Allergies, Adverse Reactions, Alerts Type Allergy to [...] ia de te s n re d [place] 60 10 11 16 30 00 [place] Ac [place] 43 -0 -1 .0 00 L- ti IC 20 6- 0- 00 07 MA ve 26 20 20 51 RT ON 41 17 17 39 E 5 56 PH HI AR OP MA CY 50 #5 MC 91 G SP RA Y BE 68 10 11 15 5 00 [facility] NZ 38 -0 -1 .0 00 L- ti ON 20 6- 0- 00 07 MA ve AT 24 20 20 51 RT AT 70 17 17 39 E 1 57 PH 10 AR 0 MA MG CY CA #5 PS 91 UL E ME 59 10 11 21 6 00 [facility] TH 74 -0 -1 .0 00 L- ti YL 60 6- 0- 00 07 MA ve HI 00 20 20 51 RT ED 10 17 17 39 NI 3 58 PH SO AR LO MA NE CY 4 #5 MG 91 DO SE PK AZ 50 10 11 6. 5 00 [facility] IT 11 -0 -1 00 00 L- ti HR 10 6- 0- 0 07 MA ve OM 78 20 20 51 RT YC 75 17 17 39 IN 1 59 PH AR 25 MA 0 CY MG #5 TA 91 BL ET BR 60 08 09 60 10 00 [facility] OM 43 -2 -2 0. 00 L- ti PH 20 5- 9- 00 07 MA ve EN 27 20 20 0 50 RT IR 51 17 17 59 -P 6 52 PH SE AR UD MA OE CY PH ED #5 -D 91 M SY R ID 57 07 08 30 30 00 [facility] RT 23 -1 -1 .0 00 L- [...] BL HI ET AN A IN C HI 00 01 02 18 9 00 EA [...] LE HI R AN A IN C Vital Signs 01-14-2013 13:42 [...] 017 DETECTE DETECTD ed ANTIGEN 09:30 D Encounters Encounter Start End Date Code Location Performer Type Date [facility] 6 6 [facility] [address] [facility] [place] [id number] [facility] [place] [id number] 6 [facility] T Emergency YARELY Kauffman (ER) 3 13:57 3 14:21 [facility] Philippe Castillo
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
--- OUTSIDE RECORDS SUMMARY | 2017-09-29 14:28 | External Medical Summary Rpt ---
Author Author [employer], [employer] Organization [employer] Address Unknown Phone Unavailable Results Influenza virus A+B Ag [Presence] in Unspecified specimen Observa Value Referen Units Interpr Notes Date tion ce etation Range Influen NOT NOT No No No Jul 6 za DETECTE DETECTD informa informa informa 2017 virus A D tion in tion in tion in 9:30 AM Ag source source source [Presen data data data ce] in Unspeci fied specime n INFLUEN NOT NOT No No LOT # Jul 6 ZA B DETECTE DETECTD informa informa @[id number] ANTIGEN D tion in tion in 4 EXP 9:30 AM source source DATE data data @919-3 0
--- OUTSIDE RECORDS SUMMARY | 2017-09-29 14:28 | External Medical Summary Rpt | CCD ---
Author Author , DANA Organization DANA Address Unknown Phone [email or web address] Immunization Name Date Rout CVX Reac Dose [...] 999 Hist H149 No H149 B, 8-19 oric ped/ 97 al adol Info rmat ion - Sour ce Unsp ecif ied
--- OUTSIDE RECORDS SUMMARY | 2017-09-29 14:28 | External Medical Summary Rpt ---
[...] 6 ZA B DETECTE DETECTD informa informa @[id number] ANTIGEN D tion in tion in 4 EXP 9:30 AM source source DATE data data @919-3 0
--- OUTSIDE RECORDS SUMMARY | 2017-09-29 14:28 | External Medical Summary Rpt | CCD ---
Author Author , DANA Organization DANA Address Unknown Phone [email or web address] Immunization Name Date Rout CVX Reac Dose [...]
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
[2017-09-29] MEDS ORDERED: NAPROXEN SODIU500 MG PO (16:02)
[2017-09-29 16:07] VITALS: BP 130/70
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
--- NOTE | 2017-09-29 16:12 | RADIOLOGY REPORT PS360 ---
PELVIS AP ONLY HISTORY: Posttraumatic pain PAIN ORDERING PHYSICIAN: Tara Pena MD PATIENT AGE: 21 years COMPARISON: None FINDINGS: No fracture or dislocation is evident. No significant degenerative change. No lytic or blastic change. The SI joints have an unremarkable appearance. Unremarkable soft tissues. IMPRESSION: Negative pelvis.
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
== END 2017-09-29 16:07 | disposition home or self-care (01) ==
LOC: ER 14:13 → UTC 14:23 → ER 16:07
DX: M25.562 Pain in left knee (principal); M54.5 Low back pain; M25.512 Pain in left shoulder; F17.210 Nicotine dependence, cigarettes, uncomplicated; V47.5XXA Car driver injured in collision with fixed or stationary object in traffic accident, initial encounter; Y92.488 Other paved roadways as the place of occurrence of the external cause